=== PATIENT | female | born 1960 | race Caucasian/White ===

== ENCOUNTER 2020-11-15 09:18 | Outpatient (CLI) | payer MEDICARE, SELFPAY ==
[2020-11-15 09:51] LABS: Hematocrit 42.6 % (37.0-47.0); Hemoglobin 14.2 g/dL (12.0-15.0); Mean Corpuscular HGB Conc 33.3 g/dl (32-36); Mean Corpuscular Hemoglobin 28.3 pg (26-34); Platelet Count Result 342 k/mm3 (150-375); Red Blood Count 5.01 M/mm3 (4.2-5.4); Red Cell Distribution Width 13.7 % (11.5-14.5)
== END 2020-11-15 09:19 | disposition home or self-care (01) ==
LOC: ANHSURGERY 09:24
PROVIDERS: PCP Internal Medicine; Visit Provider Student in an Organized Health Care Education/Training Program
DX: N81.6 Rectocele (principal); Z01.818 Encounter for other preprocedural examination
CPT/HCPCS: 36415; 85027; 86850; 86900; 86901

== ENCOUNTER → 2020-11-19 04:18 | Outpatient (CLI) | payer MEDICARE, SELFPAY ==
[2020-11-19 19:57] LABS: SARS-CoV-2 RNA PCR Negative
== END ==
PROVIDERS: PCP Internal Medicine; Visit Provider Student in an Organized Health Care Education/Training Program
DX: Z01.812 Encounter for preprocedural laboratory examination (principal); Z20.822 Contact with and (suspected) exposure to COVID-19
CPT/HCPCS: C9803; U0003; U0005

== ENCOUNTER 2020-11-22 01:17 | Day surgery (SDC) | payer MEDICARE, SELFPAY ==
[2020-11-09 14:32] VITALS: BMI 22.6
--- NOTE | 2020-11-21 11:15 | WPDANESEPPF ---
Anes - Initial Pre Proc Eval Procedure: Operation Date: 11/22/20 14:30 Proposed Procedures p Anterior and Posterior Repair - Adalberto Soliman MD Date/Time: 11/21/20 11:15 Surgeon: Adalberto Soliman MD Pre Op Diagnosis: rectocele and cystocele, pelvic pain Patient Data Age: 60 Gender: F Height: 1.68 m Weight: 63.5 kg Allergies Allergy/AdvReac Type Severity Reaction Status Date / Time Sulfa (Sulfonamide Allergy Severe Rash Verified 11/22/20 12:25 Antibiotics) levofloxacin AdvReac Unknown Other Verified 11/22/20 12:25 Ithxjoy-Geq-Dzm Reductase AdvReac Unknown Other Verified 11/22/20 12:25 Inhibitor Home Medications Medication Instructions Recorded Confirmed Type Women's 50 Plus Multivitamin 1 tablet PO DAILY 11/09/20 11/22/20 History cholecalciferol (vitamin D3) 50 mcg PO DAILY 11/09/20 11/22/20 History [Vitamin D3] clonazepam 0.5 mg PO BID 11/09/20 11/22/20 History clonazepam 2 mg PO HS 11/09/20 11/22/20 History doxepin 10 mg PO HS 11/09/20 11/22/20 History mirtazapine 30 mg PO HS 11/09/20 11/22/20 History sertraline 100 mg PO HS 11/09/20 11/22/20 History suvorexant [Belsomra] 20 mg PO HS 11/09/20 11/22/20 History Patient hx anesthesia problems: none Family hx anesthesia problems: none PMFSH Past Medical History Medical History (Updated 11/22/20 @ 08:43 by Adalberto Soliman MD) Anxiety Depression Hypercholesterolemia PTSD (post-traumatic stress disorder) Family History Family History (Updated 03/23/14 @ 07:13 by DOCTOR UNKNOWN) Mother Family history of pancreatic cancer Father Family history of lung cancer Social History Social History Years smoked: 15 Smoking status: Former smoker Smoking end date: 03/27/20 Alcohol intake: never Substance use: never Substance use type: does not use Living arrangements: with family Spiritual care concerns: No Anes - Eval Final PreProcedure Day of Procedure 11/21/20 11:15 Patient weight: normal Heart: regular rate and rhythm Lungs: clear to auscultation and normal air movement Airway: Mallampati scale class II Neurological: alert and oriented Last oral intake: >/= 8 hours ASA classification: II Emergent: no Anesthetic plan: proceed Anesthesia type and monitoring: general ETT Informed Consent: The patient's anesthetic plan and its attendant risks and benefits were discussed with the patient/family/POA. Questions were solicited and answers provided to the satisfaction of the patient/family/POA.
--- NOTE | ~2020-11-22 | XR_ITS ---
EXAMINATION: XR retrograde pyelo w/stent BI DATE: 11/22/2020 16:11 INDICATION: Bilateral retrograde ureteral stent placement TECHNIQUE: 2 fluoroscopic images of the abdomen were obtained during procedure performed by Dr. Eduard quintanilla. Radiologist was not present for the imaging or procedure. The amount of fluoroscopy time used duri ng this procedure was 1.6 minutes. COMPARISON: None. FINDINGS: Images demonstrate placement of bilateral retrograde ureteral stents with proximal loop formed in the region of the right renal pelvis and likely upper pole calyx of the left kidney. IMPRESSION: 1. Fluoroscopy utilized during bilateral retrograde ureteral stent placement. See procedure note for further detail. Reviewed, dictated and finalized at location A. IMPRESSION: 1. Fluoroscopy utilized during bilateral retrograde ureteral stent placement. S ee procedure note for further detail.
--- NOTE | 2020-11-22 08:39 | PM.IMHP ---
H&P: HPI History of Present Illness Date/Time: 11/22/20 08:39 60 yo who presents for anterior and posterior colporrhaphy for pelvic organ prolapse. Pt initially presented iwht pelvic pain and pressure. Pt also reported rakesh hematuria at the time. Pt's symptoms were unresolved with antibiotics. Pt denies any NICO as she has had a TVT in the past. Chief Complaint: pelvic organ prolapse Review of Systems Cardiovascular: Cardiovascular: Denies chest pain, Denies leg edema, Denies palpitations, Denies dyspnea and Denies dyspnea on exertion Respiratory: Respiratory: Denies cough, Denies dyspnea and Denies dyspnea on exertion Gastrointestinal: Gastrointestinal: Denies abdominal pain, Denies constipation, Denies diarrhea, Denies nausea and Denies vomiting Genitourinary: Genitourinary: Denies hematuria, Denies urinary frequency, Denies dysuria, Denies pelvic pain, Denies urinary incontinence and Denies vaginal discharge Neurologic: Reports system reviewed and no additional complaints, except as documented Psychiatric: Psychiatric: Reports no additional psychiatric complaints Endocrine: Endocrine: Denies palpitations PMFSH Past Medical History Medical History (Updated 11/22/20 @ 08:43 by Adalberto Soliman MD) Anxiety Depression Hypercholesterolemia PTSD (post-traumatic stress disorder) Family History Family History (Updated 03/23/14 @ 07:13 by DOCTOR UNKNOWN) Mother Family history of pancreatic cancer Father Family history of lung cancer Social History Social History Years smoked: 15 Smoking status: Former smoker Smoking end date: 03/27/20 Alcohol intake: never Substance use: never Substance use type: does not use Living arrangements: with family Spiritual care concerns: No Meds Home Medications and Allergies Home Medications Medication Instructions Recorded Confirmed Type Women's 50 Plus Multivitamin 1 tablet PO DAILY 11/09/20 11/09/20 History cholecalciferol (vitamin D3) 50 mcg PO DAILY 11/09/20 11/09/20 History [Vitamin D3] clonazepam 0.5 mg PO BID 11/09/20 11/09/20 History clonazepam 2 mg PO HS 11/09/20 11/09/20 History doxepin 10 mg PO HS 11/09/20 11/09/20 History mirtazapine 30 mg PO HS 11/09/20 11/09/20 History sertraline 100 mg PO HS 11/09/20 11/09/20 History suvorexant [Belsomra] 20 mg PO HS 11/09/20 11/09/20 History Allergies Allergy/AdvReac Type Severity Reaction Status Date / Time Sulfa (Sulfonamide Allergy Severe Rash Verified 11/09/20 14:28 Antibiotics) levofloxacin AdvReac Unknown Other Verified 11/09/20 14:28 Ixrssgm-Qwn-Oer Reductase AdvReac Unknown Other Verified 11/09/20 14:28 Inhibitor Exam Const: General: no acute distress Eyes: EOM: EOMs intact bilaterally Neck: Neck: supple Thyroid: thyroid normal Chest: Breast/axilla inspection: normal inspection of the breasts Breast/axilla palpation: normal palpation of the breasts, normal palpation of the axillae and no axillary lymphadenopathy Resp: Effort & Inspection: normal respiratory effort Auscultation: clear to auscultation bilaterally Cardio: Rate: regular rate Rhythm: regular rhythm GI: Inspection: non-distended GI Palp: Yes Soft to palpation, No Tenderness to palpation present (GI) and No Guarding due to palpation present (GI) Auscultation: normal bowel sounds : General: No bladder normal to palpation External Female Exam: normal external appearance Speculum Exam - Vagina: normal vaginal discharge, vagina atrophic, No vaginal bleeding and other (grade 2 cystocele and rectocele ) Speculum Exam - Cervix: Cervix absent Bimanual exam- vagina & uterus: No bladder normal to palpation and uterus absent Skin: General skin exam: normal color and no rashes or lesions noted Neuro: Cognition (Neuro): normal cognition Speech: normal speech Extrem: General: normal to inspection and no edema Psych: Mental Status: mental status grossly normal Affect: normal affect Assessment
--- NOTE | 2020-11-22 08:44 | WPDHPUPDATE1 ---
History and Physical Update Update Date/Time: 11/22/20 08:44 History and Physical has been reviewed, including an updated exam of the patient. There are NO changes in the patient's condition. Risks, benefits, and alternatives have been discussed and questions answered. Patient agrees to proceed with procedure.
[2020-11-22] MEDS: ACETAMINOPHEN 500 MG TABLET 1000 MG PO (12:53)
[2020-11-22] MEDS: LACTATED RINGERS 1,000 ML 30 ML IV CONT ×2 (12:53→17:08)
[2020-11-22] MEDS: KETOROLAC 15 MG/ML VIAL (*BKC) IV PUSH (12:55)
[2020-11-22 13:11] VITALS: BP 110/75; PULSE 70; RESP 16; TEMP 36.6; O2SAT 97
[2020-11-22] MEDS: ceFAZolin 2 GM/D5W 50 ML 2 GM/50 ML BAG IVPB (13:46)
[2020-11-22] MEDS: LIDO 1%/EPINEPHRINE 1:100,000 50 ML VIAL 30 ML INFILTRATE (14:01)
--- NOTE | 2020-11-22 14:53 | SUR.OPER ---
methylene blue 5cc IV per anesthesia /see anesthesia record
--- NOTE | 2020-11-22 16:07 | P.CONUR_ITS ---
Assessment and Plan Assessment and plan (1) Prolapse of female pelvic organs: Code(s): N81.9 - Female genital prolapse, unspecified Status: Acute Assessment and Plan: * Intraoperative evaluation with cystoscopy that showed patent ureters bilaterally without evidence of ureteral injury Urology Consult Note HPI Date Seen: 11/22/20 Requesting Physician: Adalberto Soliman MD Primary Care Provider: David Florentino, MD Consult Narrative Narrative: Corinna Watson is a 60 year old female who I was asked to see by Dr. Soliman as an intraoperative consultation for possible ureteral obstruction. This is during the course of a anterior and posterior vaginal repair. Patient is not known to have prior significant urological history. For specifics on the operative procedure (which showed no evidence of ureteral obstruction or injury) please see the dictated operative note. Review of Systems Review of Systems: ROS unobtainable: Yes unobtainable due to medical condition PMFSH Past Medical History Medical History (Updated 11/22/20 @ 08:43 by Adalberto Soliman MD) Anxiety Depression Hypercholesterolemia PTSD (post-traumatic stress disorder) Family History Family History (Updated 03/23/14 @ 07:13 by DOCTOR UNKNOWN) Mother Family history of pancreatic cancer Father Family history of lung cancer Social History Social History Years smoked: 15 Smoking status: Former smoker Smoking end date: 03/27/20 Alcohol intake: never Substance use: never Substance use type: does not use Living arrangements: with family Spiritual care concerns: No Meds Home Medications and Allergies Home Medications Medication Instructions Recorded Confirmed Type Women's 50 Plus Multivitamin 1 tablet PO DAILY 11/09/20 11/22/20 History cholecalciferol (vitamin D3) 50 mcg PO DAILY 11/09/20 11/22/20 History [Vitamin D3] clonazepam 0.5 mg PO BID 11/09/20 11/22/20 History clonazepam 2 mg PO HS 11/09/20 11/22/20 History doxepin 10 mg PO HS 11/09/20 11/22/20 History mirtazapine 30 mg PO HS 11/09/20 11/22/20 History sertraline 100 mg PO HS 11/09/20 11/22/20 History suvorexant [Belsomra] 20 mg PO HS 11/09/20 11/22/20 History Allergies Allergy/AdvReac Type Severity Reaction Status Date / Time Sulfa (Sulfonamide Allergy Severe Rash Verified 11/22/20 12:25 Antibiotics) levofloxacin AdvReac Unknown Other Verified 11/22/20 12:25 Awwtcqs-Thj-Oai Reductase AdvReac Unknown Other Verified 11/22/20 12:25 Inhibitor Vital Signs Vital Signs - 24 hr 11/22/20 13:11 Temperature 97.8 F Pulse Rate 70 Respiratory Rate 16 Blood Pressure 110/75 Pulse Oximetry 97
--- NOTE | 2020-11-22 16:11 | P.OP_ITS ---
Procedure Note - Detailed Date of procedure: 11/22/20 Pre-op diagnosis: rectocele and cystocele, pelvic pain Post-op diagnosis: same Procedure performed: 1. Cystoscopy with bilateral retrograde pyelography. 2. Left ureteroscopy. 3. Bilateral ureteral stent placement Description of procedure: Patient is in the operative suite where she has just undergone the anterior portion of an anterior/posterior vaginal repair. Cystoscopic evaluation by Dr. berto chopra failed to show any efflux her ureters, either before or following intravenous dye injection. With my cystoscopy the bladder mucosa appeared normal without hyperemia or areas of apparent injury. There was some slight medial deviation of her ureteral orifices, likely from the anterior vaginal repair that has just been performed. Right retrograde pyelography showed a patent ureter without signs of obstruction. Because of the medial deviation I did opt to place a 4.8 F right variable length ureteral stent to a could accommodate for some possible postoperative ureteral edema that I anticipate may occur. On the left side, had some difficulty getting a guidewire to pass beyond the intramural portion of the ureter. I believe this was related to some J hooking of her distal ureter without true obstruction. With the aid of a semi rigid ureteral scope I was able to identify the ureteral lumen and passed a 0.035 in glidewire. In passing an angiographic catheter for retrog rade pyelography I feel no points of significant, pathological obstruction. Retrograde pyelography shows filling of the renal pelvis. As on the right side, I opted to place a left ureteral stent. The proximal coil reach 4.8 F ureteral stent was in the renal pelvis and distal coils were in the bladder. Anesthesia: GLMA Surgeon: Vishnu Benavides MD Drains: Yes ( Bilateral 4.8 F ureteral stents) Packing: No Pathology: none sent Complications: No immediate complications Condition: stable
--- NOTE | 2020-11-22 16:16 | SUR.OPER ---
Patient repositioned for C Arm/or bed radiographic extension placed on end of bed. Patient repositioned in Lithotomy/bilateral arms and legs remain unchanged in positioning/placed lower on bed. All legs and arms checked post repositioning.
--- NOTE | 2020-11-22 17:08 | PM.PROC ---
Procedure Note - Detailed Date of procedure: 11/22/20 Pre-op diagnosis: rectocele and cystocele, pelvic pain Description of procedure: PREOPERATIVE DIAGNOSIS: Pelvic organ prolapse cystocele rectocele POSTOPERATIVE DIAGNOSIS: Same PROCEDURE: Anterior colporrhaphy posterior colporrhaphy cystoscopy ESTIMATED BLOOD LOSS: milliliter(s) URINE OUTPUT: milliters(s) FINDINGS: Stage prolapse. Normal cystourethroscopy with brisk efflux from the bilateral ureters. No trauma or injury to the bladder. size uterus. Normal appearing tubes and ovaries bilaterally. ANESTHESIA: General endotracheal COMPLICATIONS: None INDICATION FOR PROCEDURE: 60 year old patient who presented with symptomatic pelvic organ prolapse. On exam she had stage 2 prolapse. She desired to proceed with appropriate surgical repairs. She was consented to the risks, including bleeding, risk of blood transfusion, infection, injury to surrounding organs such as bowel, bladder, ureters, urethra, the risk of postoperative voiding dysfunction or defecatory dysfunction, risk of nerve injury or re- exploration, the risk of recurrent prolapse or incontinence. The patient understood all of these risks and desired to proceed. OPERATIVE NOTE: The patient was taken to the operating room and general anesthesia was found to be adequate. She was prepped and draped in the normal sterile fashion and placed in Zenon stirrups. Preoperative antibiotics were administered in the patient holding area. ANTERIOR REPAIR: At this time, the cystocele was grasped using Allis clamps and injected with 1% lidocaine with epinephrine. A midline incision was then made with a scalpel and the bladder dissected free from the vaginal mucosa by means of sharp dissection. This dissection was taken out laterally until the inferior pubic rami. The cystocele was then plicated in two layers using 2-0 Vicryl in an interrupted fashion. Excess vaginal tissue was then excised. The anterior vaginal mucosa was reapproximated with 3-0 vicryl in a running locking fashion. CYSTOURETHROSCOPY: Pt received 1 ampule of methylene blue. Cystourethroscopy was performed to confirm no injury to the bladder or urethra. The bilateral ureters were not noted to efflux after 30 min of waiting. At this time, Urology consult was placed. Retrograde pyelogram was performed. Contrast was passed successfully through bilateral ureters. Ureteral stents were then placed by urology. See Dr. Benavides' note for full dictation. RECTOCELE REPAIR AND PERINEORRHAPHY: At this time, after injection with the lidocaine mixture, a lee-shaped wedge of tissue was taken from the posterior perineum and vagina after two Allis clamps were placed on the posterior forchette in the appropriate position to ensure that the vaginal introitus was the appropriate size. With one finger in the rectum, the rectocele was then dissected free of the vaginal mucosa by means of sharp dissection. The rectocele was then plicated using 2-0 Vicryl suture in an interrupted fashion. The posterior vaginal mucosa was then closed using 3-0 Vicryl in a running locking fashion and the perineum closed in a subcuticular fashion. Iodiform vaginal packing was placed in the vagina and the Mc catheter was left in place. Sponge, lap and needle counts were correct x 2. There were no complications. The patient tolerated the procedure well and was taken to the recovery room in stable condition. Anesthesia: GETA Surgeon: Adalberto Soliman MD Estimated blood loss (mL): 150 Drains: No Packing: Yes Pathology: none sent Complications: Other complications (No ureteral efflux) Condition: stable Disposition: PACU
[2020-11-22 17:15] VITALS: BP 117/76; PULSE 87; RESP 13; TEMP 36.1; O2SAT 98
[2020-11-22 17:15] LABS: Glucose Point of Care 145 (65-105)
--- NOTE | 2020-11-22 17:28 | PM.DS ---
DS: Admitting Diagnosis Admitting Diagnosis Admitting Diagnosis: pelvci organ prolapse DS: Summary Hospital Course Hospital Course: Corinna Watson was admitted for anterior and posterior colporrhaphy and cystoscopy for pelvic organ prolapse. The above procedure was performed with no complications. She is doing well post op. She states her pain is well controlled with PO medications. She reports minimal bleeding. She is ambulating up to the chair. Her agudelo catheter was removed. She is tolerating PO without N/V. She reports passing flatus. Status at Discharge Overall status at discharge: patient is progressing back to baseline Time Spent with Patient Time attestation: Total time spent providing and/or coordinating discharge services: Time spent: Less than 30 minutes Exam Const: General: comfortable and no acute distress Limitations: no limitations Resp: Effort & Inspection: normal respiratory effort Auscultation: clear to auscultation bilaterally Cardio: Rate: regular rate Rhythm: regular rhythm GI: Inspection: non-distended GI Palp: Yes Soft to palpation, Yes Tenderness to palpation present (GI) (milder tenderness to deep palpation) and No Guarding due to palpation present (GI) Auscultation: normal bowel sounds Other: incisions C/D/I covered with dermabond Urinary Catheter: Urinary Catheter: urine clear Skin: General skin exam: normal color Extrem: General: normal to inspection Psych: Mental Status: mental status grossly normal Affect: normal affect DS: Data Data Completed and Pending Labs on day of discharge: Labs from last 24 hours 11/22/20 17:11 POC Capillary Glucose 145 H Discharge Plan Discharge Patient Disposition: Home, Self-Care Patient Instructions: Anterior Vaginal Repair (DC), Posterior Vaginal Repair (DC) Stand Alone Forms: General Discharge Instructions Follow-up/Referrals: Adalberto Soliman MD [Physician] - 2 Weeks Discharge Medications: New oxycodone-acetaminophen [Percocet] 5-325 mg tablet 1 tablet PO Q6H PRN (Reason: pain) Qty: 28 RF: 0 Continued clonazepam 0.5 mg Tablet 0.5 mg PO BID RF: 0 sertraline 100 mg Tablet 100 mg PO HS RF: 0 doxepin 10 mg Capsule 10 mg PO HS RF: 0 mirtazapine 30 mg Tablet 30 mg PO HS RF: 0 clonazepam 2 mg Tablet 2 mg PO HS RF: 0 cholecalciferol (vitamin D3) [Vitamin D3] 25 mcg (1,000 unit) Tablet 50 mcg PO DAILY RF: 0 Belsomra 20 mg Tablet 20 mg PO HS RF: 0 Women's 50 Plus Multivitamin 1 tablet PO DAILY RF: 0
[2020-11-22 17:30] VITALS: BP 120/81; PULSE 80; RESP 16; O2SAT 97
[2020-11-22 17:45] VITALS: BP 128/81; PULSE 80; RESP 18; O2SAT 92
[2020-11-22] MEDS: ONDANSETRON INJ 4 MG/2 ML VIAL IV PUSH (17:58)
[2020-11-22 18:00] VITALS: BP 130/71; PULSE 80; RESP 16; O2SAT 92
--- NOTE | 2020-11-22 18:03 | SUR.PHASEI ---
[id number] sbar faxed floor notified
--- NOTE | 2020-11-22 18:40 | PC.NURSE ---
Patient transferred to room #289 per stretcher.
[2020-11-22] MEDS: DEXTROSE 5%/LACTATED RINGERS 1,000 ML 125 ML IV CONT (18:56)
[2020-11-22 19:00] VITALS: BP 123/79; PULSE 64; RESP 16; TEMP 36.7; O2SAT 96
[2020-11-22] MEDS: KETOROLAC 30 MG/ML VIAL (*BKC) IV PUSH (19:13)
[2020-11-22] MEDS: HYDROcodone/acetaminophen (*CRX) 10-325 MG TABLET 1 TAB PO (20:35)
[2020-11-22] MEDS: MIRTAZAPINE 30 MG TABLET PO (21:24)
[2020-11-22] MEDS: SERTRALINE HCL 50 MG TABLET 100 MG PO (21:24)
[2020-11-22] MEDS: DOXEPIN HCL 10 MG CAPSULE PO (21:25)
[2020-11-23] VITALS: BP 109/76; PULSE 61; RESP 16; TEMP 36.4; O2SAT 95
[2020-11-23] MEDS: HYDROcodone/acetaminophen (*CRX) 10-325 MG TABLET 1 TAB PO ×3 (00:21→09:01)
[2020-11-23 04:00] VITALS: BP 110/67; PULSE 65; RESP 16; TEMP 36.5; O2SAT 95
--- NOTE | 2020-11-23 07:01 | WPDUROPN2 ---
Progress Note: A&P Assessment and Plan (1) Prolapse of female pelvic organs: Code(s): N81.9 - Female genital prolapse, unspecified Status: Acute Assessment and Plan: I explained my role in OR yesterday and placement of bilat. ureteral stents. I emphasized to her the need to remove her stents (in-office) in a few weeks. She should f/u with us in approx. 3-weeks. Subjective Subjective Date/Time Seen: 11/23/20 07:01 Comfortable, tolerating stents without voiding complaints Review of Systems Cardiovascular: Cardiovascular: Denies chest pain, Denies lightheadedness, Denies palpitations and Denies dyspnea Respiratory: Respiratory: Denies dyspnea Gastrointestinal: Gastrointestinal: Denies diarrhea, Denies nausea and Denies vomiting Genitourinary: Genitourinary: Denies hematuria and Denies dysuria Endocrine: Endocrine: Denies palpitations Exam Const: General: no acute distress Resp: Effort & Inspection: normal respiratory effort GI: Inspection: non-distended GI Palp: No abdominal tenderness and No Guarding due to palpation present (GI) Auscultation: normal bowel sounds Objective Data Vital Signs Vital Signs: Vital Signs - 24 hr 11/22/20 13:11 11/22/20 17:15 11/22/20 17:30 Temperature 97.8 F 97 F L Pulse Rate 70 87 80 Respiratory Rate 16 13 16 Blood Pressure 110/75 117/76 120/81 Pulse Oximetry 97 98 97 11/22/20 17:45 11/22/20 18:00 11/22/20 19:00 Temperature 98.1 F Pulse Rate 80 80 64 Respiratory Rate 18 16 16 Blood Pressure 128/81 130/71 123/79 Pulse Oximetry 92 92 96 11/23/20 00:00 11/23/20 04:00 Temperature 97.6 F 97.7 F Pulse Rate 61 65 Respiratory Rate 16 16 Blood Pressure 109/76 110/67 Pulse Oximetry 95 95 Intake/Output Intake/Output: Intake & Output 11/20/20 11/21/20 11/22/20 11/23/20 23:59 23:59 23:59 23:59 Intake Total 850 1200 Output Total 610 875 Balance 240 325 Meds/Results Medications: Active Medications Generic Name Dose Route Start Last Admin Trade Name Freq PRN Reason Stop Dose Admin Hydrocodone Bitart/Acetaminophen 1 tab 11/22/20 18:34 Hydrocodone/Acetaminophen (*Crx) 5-325 Mg Tablet PO Q3H PRN Pain Rated 5 or Less Hydrocodone Bitart/Acetaminophen 1 tab 11/22/20 18:34 11/23/20 03:42 Hydrocodone/Acetaminophen (*Crx) 10-325 Mg Tablet PO 1 tab Q3H PRN Administration Pain Rated 6 or Greater Clonazepam 0.5 mg 11/23/20 09:00 Clonazepam (*Crx) 0.5 Mg Tablet PO BID KEELEY Doxepin HCl 10 mg 11/22/20 21:00 11/22/20 21:25 Doxepin Hcl 10 Mg Capsule PO 10 mg HS KEELEY Administration Dextrose/Lactated Ringer's 1,000 mls @ 125 mls/hr 11/22/20 18:34 11/23/20 03:44 Dextrose 5%/Lactated Ringers IV CONT Infused .Q8H KEELEY Infusion Ibuprofen 600 mg 11/22/20 18:34 Ibuprofen 600 Mg Tablet PO Q6H PRN Cramping Ketorolac Tromethamine 30 mg 11/22/20 18:34 11/22/20 19:13 Ketorolac 30 Mg/Ml Vial (*Bkc) IV PUSH 11/27/20 18:35 30 mg Q6H PRN Administration Pain Rated 4-6 Mirtazapine 30 mg 11/22/20 21:00 11/22/20 21:24 Mirtazapine 30 Mg Tablet PO 30 mg HS KEELEY Administration Naloxone HCl 0.1 mg 11/22/20 18:34 Naloxone Hcl 0.4 Mg/Ml Vial IV PUSH Q2M PRN Respiratory rate less than 10 Ondansetron HCl 4 mg 11/22/20 18:34 Ondansetron Inj 4 Mg/2 Ml Vial IV PUSH Q6H PRN Nausea And Vomiting Sertraline HCl 100 mg 11/22/20 21:00 11/22/20 21:24 Sertraline Hcl 50 Mg Tablet PO 100 mg HS KEELEY Administration Radiology Results: ITS Impressions Retrograde Pyelogram 11/22/20 16:24 IMPRESSION: 1. Fluoroscopy utilized during bilateral retrograde ureteral stent placement. See procedure note for further detail. Labs Labs: Laboratory Results - last 24 hr 11/22/20 17:11 POC Capillary Glucose 145 H
--- NOTE | 2020-11-23 08:48 | WPDANESPN ---
Anes - Prog Note Post-Op Date/Time: 11/23/20 08:48 Cardiovascular status: normal Respiratory status: normal Airway patency: baseline Mental status: baseline Post-Op hydration status: normal Vital Signs: Last Vital Signs Temp 36.5 C 11/23/20 04:00 Pulse 65 11/23/20 04:00 Resp 16 11/23/20 04:00 BP 110/67 11/23/20 04:00 Pulse Ox 95 11/23/20 04:00 Pain Score (VAS): 0 I/O: Intake & Output 11/22/20 11/23/20 11/23/20 23:59 07:59 15:59 Intake Total 800 1200 Output Total 610 875 Balance 190 325 11/22/20 17:11 POC Capillary Glucose 145 H Post-procedural complaints: none Patient Feedback: Patient satisfied with anesthetic care.
[2020-11-23] MEDS: IBUPROFEN 600 MG TABLET PO (09:00)
[2020-11-23] MEDS: clonazePAM (*CRX) 0.5 MG TABLET PO (09:00)
[2020-11-23 09:05] VITALS: BP 137/79; PULSE 61; RESP 16; TEMP 37.2; O2SAT 97
--- NOTE | 2020-11-23 09:08 | PM.GYNPNOP ---
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 P: Home to f/u office 2 weeks. Time Spent With Patient Time with patient: less than 15 minutes BALL WARPER TENDER- PN:Subj Post-Op Subjective Date/time seen: 11/23/20 09:08 Interval history: Pain OK. Tolerating diet. Voiding. Would like to go home. Exam Narrative: Exam Narrative: AVSS I/O OK ABD soft, nontender. Incisions c/d/i. EXT nontender BALL WARPER TENDER - PN: Obj Data Vital Signs Vital Signs: Vital Signs - 24 hr 11/22/20 13:11 11/22/20 17:15 11/22/20 17:30 Temperature 36.6 C 36.1 C L Pulse Rate 70 87 80 Respiratory Rate 16 13 16 Blood Pressure 110/75 117/76 120/81 Pulse Oximetry 97 98 97 11/22/20 17:45 11/22/20 18:00 11/22/20 19:00 Temperature 36.7 C Pulse Rate 80 80 64 Respiratory Rate 18 16 16 Blood Pressure 128/81 130/71 123/79 Pulse Oximetry 92 92 96 11/23/20 00:00 11/23/20 04:00 Temperature 36.4 C 36.5 C Pulse Rate 61 65 Respiratory Rate 16 16 Blood Pressure 109/76 110/67 Pulse Oximetry 95 95 Intake/Output Intake/Output: Intake & Output 11/20/20 11/21/20 11/22/20 11/23/20 23:59 23:59 23:59 23:59 Intake Total 850 1200 Output Total 610 875 Balance 240 325 Meds/Results Medications: Active Medications Generic Name Dose Route Start Last Admin Trade Name Freq PRN Reason Stop Dose Admin Hydrocodone Bitart/Acetaminophen 1 tab 11/22/20 18:34 Hydrocodone/Acetaminophen (*Crx) 5-325 Mg Tablet PO Q3H PRN Pain Rated 5 or Less Hydrocodone Bitart/Acetaminophen 1 tab 11/22/20 18:34 11/23/20 09:01 Hydrocodone/Acetaminophen (*Crx) 10-325 Mg Tablet PO 1 tab Q3H PRN Administration Pain Rated 6 or Greater Clonazepam 0.5 mg 11/23/20 09:00 11/23/20 09:00 Clonazepam (*Crx) 0.5 Mg Tablet PO 0.5 mg BID KEELEY Administration Doxepin HCl 10 mg 11/22/20 21:00 11/22/20 21:25 Doxepin Hcl 10 Mg Capsule PO 10 mg HS KEELEY Administration Dextrose/Lactated Ringer's 1,000 mls @ 125 mls/hr 11/22/20 18:34 11/23/20 03:44 Dextrose 5%/Lactated Ringers IV CONT Infused .Q8H KEELEY Infusion Ibuprofen 600 mg 11/22/20 18:34 11/23/20 09:00 Ibuprofen 600 Mg Tablet PO 600 mg Q6H PRN Administration Cramping Ketorolac Tromethamine 30 mg 11/22/20 18:34 11/22/20 19:13 Ketorolac 30 Mg/Ml Vial (*Bkc) IV PUSH 11/27/20 18:35 30 mg Q6H PRN Administration Pain Rated 4-6 Mirtazapine 30 mg 11/22/20 21:00 11/22/20 21:24 Mirtazapine 30 Mg Tablet PO 30 mg HS KEELEY Administration Naloxone HCl 0.1 mg 11/22/20 18:34 Naloxone Hcl 0.4 Mg/Ml Vial IV PUSH Q2M PRN Respiratory rate less than 10 Ondansetron HCl 4 mg 11/22/20 18:34 Ondansetron Inj 4 Mg/2 Ml Vial IV PUSH Q6H PRN Nausea And Vomiting Sertraline HCl 100 mg 11/22/20 21:00 11/22/20 21:24 Sertraline Hcl 50 Mg Tablet PO 100 mg HS KEELEY Administration Radiology Results: ITS Impressions Retrograde Pyelogram 11/22/20 16:24 IMPRESSION: 1. Fluoroscopy utilized during bilateral retrograde ureteral stent placement. See procedure note for further detail. Labs Labs: Laboratory Results - last 24 hr 11/22/20 17:11 POC Capillary Glucose 145 H
== END 2020-11-23 12:04 | disposition home or self-care (01) ==
LOC: ANHSURGERY 17:29 → ANHOB2 18:38
PROVIDERS: Urology; PCP Internal Medicine; Visit Provider Student in an Organized Health Care Education/Training Program
PROC: (CPT 57260; principal; 2020-11-22 14:30)
PROC: 0TBB8ZX Excision of Bladder, Via Natural or Artificial Opening Endoscopic, Diagnostic (ICD-10-PCS; CPT 52204; 2020-11-22 14:30)
DX: N81.6 Rectocele (principal); N81.10 Cystocele, unspecified; N81.9 Female genital prolapse, unspecified; N28.89 Other specified disorders of kidney and ureter; E78.00 Pure hypercholesterolemia, unspecified; F32.9 Major depressive disorder, single episode, unspecified; F41.9 Anxiety disorder, unspecified; Z87.891 Personal history of nicotine dependence
CPT/HCPCS: 57260; 52332; 36415; 74420; 82948; 85027; 86850; 86900; 86901; 99199; A9270; C1769; C1887; C2617; C9803; J0690; J1100; J1885; J1940; J2405; J2704; J3010; J7030; J7120; J7121; Q9968; U0003; U0005

== ENCOUNTER 2020-11-30 15:38 | Observation (INO) | payer MEDICARE, SELFPAY ==
--- NOTE | ~2020-11-30 | XR_ITS ---
EXAMINATION: XR abdomen/kub 1V DATE: 11/30/2020 17:33 INDICATION: Constipation. TECHNIQUE: A supine view of the abdomen on 2 radiographs was obtained. COMPARISON: None. FINDINGS: There is dilated small bowel in left upper quadrant. There is a large volume of stool in th e colon. There are bilateral internal ureteral stents in expected position. IMPRESSION: 1. Large volume of stool in colon. 2. Dilated small bowel in left upper quadrant, consistent with adynamic ileus versus bowel obstructio n. Reviewed, dictated and finalized at location A. IMPRESSION: 1. Large volume of stool in colon. 2. Dilated small bowel in left upper quadrant, consistent with adynamic ileus v ersus bowel obstruction.
--- NOTE | ~2020-11-30 | CT_ITS ---
EXAMINATION: CT abdomen pelvis w con DATE: 11/30/2020 21:11 INDICATION: Constipation. Nausea. TECHNIQUE: Computed tomography (CT) of the abdomen and pelvis was performed with 100 mL Omnipaque 350 intravenous contrast. Automated exposure control and iterative reconstruction technique were employe d. The dose-length product was 486.48 mGy-cm. COMPARISON: None. FINDINGS: The visualized portions of the lung bases demonstrate emphysema and mild atelectasis. No pl eural effusion. The heart size is normal. There are coronary artery calcifications. No pericardial ef fusion. The liver, gallbladder, and pancreas are normal. Calcifications in the spleen are consistent with old granulomatous disease. Right adrenal gland is normal. There is a 12 mm mass in left adrenal gland measuring soft tissue attenuation. There are bilateral internal ureteral stents in expected pos itions. There is a large volume of stool in colon. The appendix is normal. There are no dilated loops of bowel. There are no pathologically enlarged lymph nodes. There is no free intraperitoneal fluid. Pelvic floor relaxation is noted. There is lumbar dextroscoliosis and mild spondylosis. IMPRESSION: 1. Large volume of stool in the colon. 2. Pelvic floor relaxation. 3. 12 mm mass in left adrenal gland. In the absence of known malignancy, this finding is likely an ad enoma. Reviewed, dictated and finalized at location A. IMPRESSION: 1. Large volume of stool in the colon. 2. Pelvic floor relaxation. 3. 12 mm mass in left adrenal gland. In the absence of known malignancy, this f inding is likely an adenoma.
[2020-11-30 16:16] VITALS: BP 118/79; PULSE 84; RESP 16; TEMP 37.1; O2SAT 97
[2020-11-30 16:43] LABS: Basophils Absolute Auto 0.1 K/mm3 (0.0-0.1); Basophils Percent Auto 0.6 % (0.2-1.2); Eosinophils Absolute Auto 0.2 K/mm3 (0-0.3); Eosinophils Percent Auto 1.8 % (0-4.4); Hematocrit 40.1 % (37.0-47.0); Hemoglobin 13.2 g/dL (12.0-15.0); Immature Granulocyte Absolute 0.06 K/mm3 (0.00-0.031); Immature Granulocyte Percent A 0.5 % (0-0.5); Lymphocytes Absolute Auto 3.28 K/mm3 (0.9-3.2); Lymphocytes Percent Auto 24.6 % (18.3-44.2); Mean Corpuscular HGB Conc 32.9 g/dl (32-36); Mean Corpuscular Hemoglobin 28.8 pg (26-34); Mean Corpuscular Volume 87.4 fl (80-100); Mean Platelet Volume 8.9 fl (7.4-10.4); Monocytes Absolute Auto 0.8 K/mm3 (0.1-0.6); Monocytes Percent Auto 5.9 % (2.6-8.5); Neutrophils Absolute Auto 8.9 K/mm3 (1.3-6.7); Neutrophils Percent Auto 66.6 % (45.5-73.1); Platelet Count Result 395 k/mm3 (150-375); Red Blood Count 4.59 M/mm3 (4.2-5.4); Red Cell Distribution Width 14.1 % (11.5-14.5); White Blood Count 13.3 K/mm3 (4.5-10.0)
[2020-11-30 16:46] LABS: Alanine Aminotransferase 33 U/L (4-35); Albumin Level 4.4 g/dL (3.5-5.1); Alkaline Phosphatase 129 U/L (38-126); Anion Gap 10 mmol/L (8-16); Aspartate Amino Transferase 39 U/L (14-36); Bilirubin,Total 0.3 mg/dL (0.2-1.3); Blood Urea Nitrogen 11 mg/dL (7-17); Calcium 9.3 mg/dL (8.4-10.2); Carbon Dioxide 26 mmol/L (22-30); Chloride 104 mmol/L (98-107); Estimated CRCL calculation 79 ml/min; Estimated Glomerular Filt Rate > 60; Glucose 108 mg/dL (65-105); Lipase 29 U/L (23-300); Potassium 4.1 mmol/L (3.4-5.0); Sodium 140 mmol/L (137-145)
[2020-11-30 19:41] VITALS: BP 122/79; PULSE 84; RESP 15
--- NOTE | 2020-11-30 20:01 | ED.GENADULT ---
HPI - General Adult General Chief complaint: Abdominal Pain <Sarbjit Baker PA-C - Last Filed: 11/30/20 21:42> Stated complaint: No BM X 9 Days <Sarbjit Baker PA-C - Last Filed: 11/30/20 21:42> Time Seen by Provider: 11/30/20 19:35 <CHRISTIAN Dyer Last Filed: 11/30/20 21:42> Source: patient, RN notes reviewed and old records reviewed <CHRISTIAN Dyer Last Filed: 11/30/20 21:42> Mode of arrival: ambulatory <CHRISTIAN Dyer Last Filed: 11/30/20 21:42> Limitations: no limitations <CHRISTIAN Dyer Last Filed: 11/30/20 21:42> History of Present Illness HPI narrative: Patient is a 60-year-old female who presents to emergency department noting abdominal discomfort and distention patient had anterior posterior colporrhaphy raphe and cystoscopic for pelvic organ prolapse by Dr. Soliman November 22 which was performed without complications she was discharged home. Patient notes that she has not had a bowel movement since has been using stool softeners with no improvement. Patient notes that during this. She has now had decreased appetite with slight nausea and notes slight discomfort in the left lower abdomen. Patient denies any vaginal bleeding or discharge or hematuria she notes that she is able to urinate without difficulty. Patient states she is passing flatus. <Sarbjit Baker PA-C - Last Filed: 11/30/20 21:42> Related Data Home medications: Home Medications Medication Instructions Recorded Confirmed Belsomra 20 mg PO HS 11/09/20 11/30/20 Women's 50 Plus Multivitamin 1 tablet PO DAILY 11/09/20 11/30/20 cholecalciferol (vitamin D3) 50 mcg PO DAILY 11/09/20 11/30/20 [Vitamin D3] clonazepam 0.5 mg PO BID 11/09/20 11/30/20 clonazepam 2 mg PO HS 11/09/20 11/30/20 doxepin 10 mg PO HS 11/09/20 11/30/20 mirtazapine 30 mg PO HS 11/09/20 11/30/20 sertraline 100 mg PO HS 11/09/20 11/30/20 <Sarbjit Baker PA-C - Last Filed: 11/30/20 21:42> Allergies/adverse reactions: Allergies Allergy/AdvReac Type Severity Reaction Status Date / Time Sulfa (Sulfonamide Allergy Severe Rash Verified 11/30/20 19:50 Antibiotics) levofloxacin AdvReac Unknown Other Verified 11/30/20 23:28 Tuqenea-Lqi-Cve Reductase AdvReac Unknown Other Verified 11/30/20 23:28 Inhibitor <Sarbjit Baker PA-C - Last Filed: 11/30/20 21:42> Review of Systems Review of Systems: All systems reviewed & are unremarkable except as noted in HPI and below <Sarbjit Baker PA-C - Last Filed: 11/30/20 21:42> PMFSH Past Medical History Medical History: Medical History (Updated 11/30/20 @ 21:42 by Sarbjit Bakre PA-C) Anxiety Depression Hypercholesterolemia PTSD (post-traumatic stress disorder) <Sarbjit Baker PA-C - Last Filed: 11/30/20 21:42> Surgical History Surgical History: Surgical History (Updated 11/30/20 @ 20:04 by Sarbjit Baker PA-C) History of anterior colporrhaphy <Sarbjit Baker PA-C - Last Filed: 11/30/20 21:42> Family History Family History: Family History Mother Family history of pancreatic cancer Father Family history of lung cancer <Sarbjit Baker PA-C - Last Filed: 11/30/20 21:42> Social History Social History: Social History Years smoked: 15 Smoking status: Former smoker Tobacco type: cigarettes Alcohol intake: never Substance use: never Substance use type: does not use Gender identity (if verbalized by the patient): Female Spiritual care concerns: No <Sarbjit Baker PA-C - Last Filed: 11/30/20 21:42> Exam Narrative: Exam Narrative: GENERAL: Well-appearing, well-nourished, and in no acute distress. HEAD: Normocephalic, atraumatic. EYES: PERRLA and EOMI. ENT: Nares clear, no rhinorrhea or epistaxis. Mucous membranes moist. CHEST: Clear to auscultati
[2020-11-30] MEDS: SODIUM CHLORIDE 0.9% IV 1,000 ML 999 ML IV CONT (20:31)
[2020-11-30 20:33] LABS: Add Urine Microscopic? YES; Appearance Urine Cloudy (Clear); Bacteria Urine Trace /hpf; Bilirubin Urine Negative (Negative); Blood Urine 3+ (Negative); Color Urine Yellow (Yellow); Glucose Urine UA Negative (Negative); Ketones Urine Negative (Negative); Leukocyte Esterase Ur 3+ LEU/UL (Negative); Mucus Urine Heavy /lpf; Nitrate Urine Negative (Negative); Protein Urine 2+ mg/dL (Negative); RBC Urine >75 /hpf (0-2); Specific Grav Ur 1.015 (1.001-1.035); Squamous Epithelial Cell Urine Rare /hpf (Few); Transitional Epi Cells Urine Rare /hpf (None Seen); Urobilinogen Urine Negative mg/dL (<2.0); WBC Urine >75 /hpf
--- NOTE | 2020-11-30 20:55 | PC.NURSE ---
Pt to CT at this time.
[2020-11-30 21:09] LABS: Lactic Acid Reflex 0.7 mmol/L (0.7-2.1)
[2020-11-30] MEDS: LORazepam INJ (*CRX) 2 MG/ML VIAL 1 MG IV PUSH (22:08)
[2020-11-30 22:15] VITALS: BP 122/63; PULSE 75; RESP 18; O2SAT 96
[2020-11-30] MEDS: ONDANSETRON INJ 4 MG/2 ML VIAL IV PUSH (22:51)
[2020-11-30] MEDS: FAMOTIDINE 20 MG/2 ML VIAL IV PUSH (22:51)
--- NOTE | 2020-11-30 22:56 | PC.NURSE ---
Pt not drinking Miralax due to N/V, pt given Miralax bottle to go upstairs.
--- NOTE | 2020-11-30 23:11 | ADMGEN ---
This patient, Corinna Watsno, was admitted to Medical Room 247-. Patient/family oriented to hospital policies and general routines including ID bracelet, bed and alarms, visiting hours, pain management, procedures, bathroom and other care routines, personal items, smoking policy, room service/diet, and visiting hours. Information on how to activate the Rapid Response Team has been discussed. Patient/Family are encouraged to report perceived risks to care and to ask questions if they do not understand what they are told or what they should do.
[2020-11-30] MEDS: polyethylene glycoL 3350 238 GM BOTTLE PO (23:31)
[2020-11-30] MEDS: LACTATED RINGERS 1,000 ML 80 ML IV CONT (23:31)
[2020-12-01] VITALS: BP 117/51; PULSE 75; RESP 16; TEMP 36.7; O2SAT 98; BMI 26.4
[2020-12-01] MEDS: MIRTAZAPINE 30 MG TABLET PO (01:14)
[2020-12-01] MEDS: clonazePAM (*CRX) 0.5 MG TABLET 2 MG PO (01:14)
[2020-12-01] MEDS: SERTRALINE HCL 50 MG TABLET 100 MG PO (01:15)
[2020-12-01] MEDS: DOXEPIN HCL 10 MG CAPSULE PO (01:15)
[2020-12-01 05:41] VITALS: BP 107/63; PULSE 76; RESP 16; TEMP 36.1; O2SAT 91
[2020-12-01 05:45] LABS: Anion Gap 4 mmol/L (8-16); Blood Urea Nitrogen 8 mg/dL (7-17); Calcium 8.6 mg/dL (8.4-10.2); Carbon Dioxide 27 mmol/L (22-30); Chloride 109 mmol/L (98-107); Estimated CRCL calculation 79 ml/min; Estimated Glomerular Filt Rate > 60; Glucose 104 mg/dL (65-105); Potassium 3.8 mmol/L (3.4-5.0); Sodium 140 mmol/L (137-145)
[2020-12-01 05:54] LABS: Basophils Absolute Auto 0.1 K/mm3 (0.0-0.1); Basophils Percent Auto 0.7 % (0.2-1.2); Eosinophils Absolute Auto 0.2 K/mm3 (0-0.3); Eosinophils Percent Auto 1.5 % (0-4.4); Hematocrit 36.6 % (37.0-47.0); Immature Granulocyte Absolute 0.04 K/mm3 (0.00-0.031); Immature Granulocyte Percent A 0.3 % (0-0.5); Lymphocytes Absolute Auto 2.36 K/mm3 (0.9-3.2); Lymphocytes Percent Auto 19.9 % (18.3-44.2); Mean Corpuscular HGB Conc 32.8 g/dl (32-36); Mean Corpuscular Volume 88.4 fl (80-100); Mean Platelet Volume 8.9 fl (7.4-10.4); Monocytes Absolute Auto 0.9 K/mm3 (0.1-0.6); Monocytes Percent Auto 7.4 % (2.6-8.5); Neutrophils Absolute Auto 8.3 K/mm3 (1.3-6.7); Neutrophils Percent Auto 70.2 % (45.5-73.1); Platelet Count Result 358 k/mm3 (150-375); Red Blood Count 4.14 M/mm3 (4.2-5.4); Red Cell Distribution Width 14.2 % (11.5-14.5); White Blood Count 11.9 K/mm3 (4.5-10.0)
--- NOTE | 2020-12-01 07:56 | PM.IMHP ---
H&P: HPI History of Present Illness Date/Time: 12/01/20 07:56 Patient was admitted through the ER 9 days from an A&P repair. She underwent x-rays and CT which showed constipation consistent with her 9 days of lack of bowel movement. She was admitted for pain management treatment for chronic constipation. Chief Complaint: Abdominal pain and constipation Review of Systems Review of Systems: All systems reviewed & are unremarkable except as noted in HPI and below PMFSH Past Medical History Medical History Anxiety Depression Hypercholesterolemia PTSD (post-traumatic stress disorder) Surgical History Surgical History History of anterior colporrhaphy Family History Family History Mother Family history of pancreatic cancer Father Family history of lung cancer Social History Social History Years smoked: 15 Smoking status: Former smoker Tobacco type: cigarettes Alcohol intake: never Substance use: never Substance use type: does not use Gender identity (if verbalized by the patient): Female Spiritual care concerns: No Meds Home Medications and Allergies Home Medications Medication Instructions Recorded Confirmed Type Belsomra 20 mg PO HS 11/09/20 11/30/20 History Women's 50 Plus Multivitamin 1 tablet PO DAILY 11/09/20 11/30/20 History cholecalciferol (vitamin D3) 50 mcg PO DAILY 11/09/20 11/30/20 History [Vitamin D3] clonazepam 0.5 mg PO BID 11/09/20 11/30/20 History clonazepam 2 mg PO HS 11/09/20 11/30/20 History doxepin 10 mg PO HS 11/09/20 11/30/20 History mirtazapine 30 mg PO HS 11/09/20 11/30/20 History sertraline 100 mg PO HS 11/09/20 11/30/20 History Allergies Allergy/AdvReac Type Severity Reaction Status Date / Time Sulfa (Sulfonamide Allergy Severe Rash Verified 11/30/20 19:50 Antibiotics) levofloxacin AdvReac Unknown Other Verified 11/30/20 23:28 Rrcwxms-Xna-Snu Reductase AdvReac Unknown Other Verified 11/30/20 23:28 Inhibitor Vital Signs Vital Signs - 24 hr 11/30/20 16:16 11/30/20 19:41 11/30/20 22:15 Temperature 98.8 F Pulse Rate 84 84 75 Respiratory Rate 16 15 18 Blood Pressure 118/79 122/79 122/63 Pulse Oximetry 97 96 12/01/20 00:00 12/01/20 05:41 Temperature 98.1 F 97.0 F L Pulse Rate 75 76 Respiratory Rate 16 16 Blood Pressure 117/51 L 107/63 Pulse Oximetry 98 91 Exam Const: General: no acute distress Eyes: General: appearance normal, both eyes and all related structures Neck: Neck: supple and no JVD Thyroid: thyroid normal Resp: Effort & Inspection: normal respiratory effort Auscultation: clear to auscultation bilaterally Cardio: Rate: regular rate Rhythm: regular rhythm GI: Inspection: non-distended GI Palp: Yes Soft to palpation, No Tenderness to palpation present (GI) and No Guarding due to palpation present (GI) Auscultation: normal bowel sounds : General: Yes bladder normal to palpation External Female Exam: normal external appearance Speculum Exam - Vagina: normal vaginal discharge and No vaginal bleeding Speculum Exam - Cervix: nontender Bimanual exam- vagina & uterus: bladder normal to palpation and No Cervical tenderness present OB/external & speculum: No vaginal bleeding Skin: General skin exam: no rashes or lesions noted Extrem: General: normal to inspection and no edema Psych: Mental Status: mental status grossly normal Affect: normal affect H&P: Results Labs Labs: Short CBC 11/30/20 12/01/20 Range/Units 16:26 05:09 WBC 13.3 H 11.9 H (4.5-10.0) K/mm3 Hgb 13.2 12.0 (12.0-15.0) g/dL Hct 40.1 36.6 L (37.0-47.0) % Plt Count 395 H 358 (150-375) k/mm3 BMP 11/30/20 12/01/20 16:26 05:09 Sodium 140 140 Potassium 4.1 3.8 Chloride 104 109 H
--- NOTE | 2020-12-01 07:58 | PM.DS ---
DS: Admitting Diagnosis Admitting Diagnosis Admitting Diagnosis: Abdominal pain/ constipation DS: Summary Hospital Course Hospital Course: The patient was admitted through the ER complaining of abdominal pain and lack of bowel movement for 9 days. She had undergone anterior posterior repair [address] scan showed constipation. There are also placement of stents during the procedure which were noted to be in the correct place. As there was some hematuria and possible kidney infection she was given a dose of Rocephin. Her hospital course was unremarkable. She received a soapsuds enema and treatment for constipation and eventually had to moderate-sized bowel movements and was feeling better. She was up, ambulating, eating, and generally feeling much better. Time Spent with Patient Time attestation: Total time spent providing and/or coordinating discharge services: Exam Const: General: no acute distress Eyes: General: appearance normal, both eyes and all related structures Neck: Neck: supple and no JVD Thyroid: thyroid normal Resp: Effort & Inspection: normal respiratory effort Auscultation: clear to auscultation bilaterally Cardio: Rate: regular rate Rhythm: regular rhythm GI: Inspection: non-distended GI Palp: Yes Soft to palpation, No Tenderness to palpation present (GI) and No Guarding due to palpation present (GI) Auscultation: normal bowel sounds : General: Yes bladder normal to palpation External Female Exam: normal external appearance Speculum Exam - Vagina: normal vaginal discharge and No vaginal bleeding Speculum Exam - Cervix: nontender Bimanual exam- vagina & uterus: bladder normal to palpation and No Cervical tenderness present OB/external & speculum: No vaginal bleeding Skin: General skin exam: no rashes or lesions noted Extrem: General: normal to inspection and no edema Psych: Mental Status: mental status grossly normal Affect: normal affect DS: Data Data Completed and Pending Labs on day of discharge: Labs from last 24 hours 12/01/20 12/01/20 11/30/20 05:09 05:09 20:47 WBC 11.9 H RBC 4.14 L Hgb 12.0 Hct 36.6 L MCV 88.4 MCH 29.0 MCHC 32.8 RDW 14.2 Plt Count 358 MPV 8.9 Immature Gran % (Auto) 0.3 Neut % (Auto) 70.2 Lymph % (Auto) 19.9 [place] % (Auto) 7.4 Eos % (Auto) 1.5 Baso % (Auto) 0.7 Lymph # (Auto) 2.36 [place] # (Auto) 0.9 H Eos # (Auto) 0.2 Baso # (Auto) 0.1 Abs Immat Gran (auto) 0.04 H Absolute Neuts (auto) 8.3 H Absolute Nucleated RBC 0.0 Nucleated RBC % 0.0 Sodium 140 Potassium 3.8 Chloride 109 H Carbon Dioxide 27 Anion Gap 4 L BUN 8 Creatinine 0.60 L Estim Creat Clear Calc 79 Estimated GFR > 60 Glucose 104 Lactic Acid 0.7 Calcium 8.6 Total Bilirubin AST ALT Alkaline Phosphatase Total Protein Albumin Lipase Urine Color Urine Appearance Urine pH Ur Specific [place] Urine Protein Urine Glucose (UA) Urine Ketones Ur Blood (Man) Urine Nitrate Urine Bilirubin Urine Urobilinogen Leukocyte Esterase Rfl Urine RBC Urine WBC Ur Squamous Epith Cells Ur Transition Epith Cell Urine Bacteria Urine Mucus 11/30/20 11/30/20 11/30/20 20:18 16:26 16:26 WBC 13.3 H RBC 4.59 Hgb 13.2 Hct 40.1 MCV 87.4 MCH 28.8 MCHC 32.9 RDW 14.1 Plt Count 395 H MPV 8.9 Immature Gran % (Auto) 0.5 Neut % (Auto) 66.6 Lymph % (Auto) 24.6 [place] % (Auto) 5.9 Eos % (Auto) 1.8 Baso % (Auto) 0.6 Lymph # (Auto) 3.28 H [place] # (Auto) 0.8 H Eos # (Auto) 0.2 Baso # (Auto) 0.1 Abs Immat Gran (auto) 0.06 H Absolute Neuts (auto) 8.9 H Absolute Nucleated RBC 0.0 Nucleated RBC % 0.0 Sodium 140 Potassium 4.1 Chloride 104 Carbon Dioxide 26 Anion Gap 10 BUN 11 Creatinine 0.60 L Estim Creat Clear Calc 79 Estim
--- NOTE | 2020-12-01 08:01 | PM.OBPNVD ---
OB - PN: Subj Subjective Date/time seen: 12/01/20 08:01 Feeling much better. Had 2 successful bowel movements. OB - PN: Obj Data Labs CBC & Chem 7: 12/01/20 05:09 12/01/20 05:09 Labs: Laboratory Results - last 24 hr 11/30/20 11/30/20 11/30/20 16:26 16:26 20:18 WBC 13.3 H RBC 4.59 Hgb 13.2 Hct 40.1 MCV 87.4 MCH 28.8 MCHC 32.9 RDW 14.1 Plt Count 395 H MPV 8.9 Immature Gran % (Auto) 0.5 Neut % (Auto) 66.6 Lymph % (Auto) 24.6 [place] % (Auto) 5.9 Eos % (Auto) 1.8 Baso % (Auto) 0.6 Lymph # (Auto) 3.28 H [place] # (Auto) 0.8 H Eos # (Auto) 0.2 Baso # (Auto) 0.1 Abs Immat Gran (auto) 0.06 H Absolute Neuts (auto) 8.9 H Absolute Nucleated RBC 0.0 Nucleated RBC % 0.0 Sodium 140 Potassium 4.1 Chloride 104 Carbon Dioxide 26 Anion Gap 10 BUN 11 Creatinine 0.60 L Estim Creat Clear Calc 79 Estimated GFR > 60 Glucose 108 H Lactic Acid Calcium 9.3 Total Bilirubin 0.3 AST 39 H ALT 33 Alkaline Phosphatase 129 H Total Protein 8.0 Albumin 4.4 Lipase 29 Urine Color Yellow Urine Appearance Cloudy H Urine pH 6.0 Ur Specific [place] 1.015 Urine Protein 2+ H Urine Glucose (UA) Negative Urine Ketones Negative Ur Blood (Man) 3+ H Urine Nitrate Negative Urine Bilirubin Negative Urine Urobilinogen Negative Leukocyte Esterase Rfl 3+ H Urine RBC >75 H Urine WBC >75 H Ur Squamous Epith Cells Rare Ur Transition Epith Cell Rare Urine Bacteria Trace Urine Mucus Heavy H 11/30/20 12/01/20 12/01/20 20:47 05:09 05:09 WBC 11.9 H RBC 4.14 L Hgb 12.0 Hct 36.6 L MCV 88.4 MCH 29.0 MCHC 32.8 RDW 14.2 Plt Count 358 MPV 8.9 Immature Gran % (Auto) 0.3 Neut % (Auto) 70.2 Lymph % (Auto) 19.9 [place] % (Auto) 7.4 Eos % (Auto) 1.5 Baso % (Auto) 0.7 Lymph # (Auto) 2.36 [place] # (Auto) 0.9 H Eos # (Auto) 0.2 Baso # (Auto) 0.1 Abs Immat Gran (auto) 0.04 H Absolute Neuts (auto) 8.3 H Absolute Nucleated RBC 0.0 Nucleated RBC % 0.0 Sodium 140 Potassium 3.8 Chloride 109 H Carbon Dioxide 27 Anion Gap 4 L BUN 8 Creatinine 0.60 L Estim Creat Clear Calc 79 Estimated GFR > 60 Glucose 104 Lactic Acid 0.7 Calcium 8.6 Total Bilirubin AST ALT Alkaline Phosphatase Total Protein Albumin Lipase Urine Color Urine Appearance Urine pH Ur Specific [place] Urine Protein Urine Glucose (UA) Urine Ketones Ur Blood (Man) Urine Nitrate Urine Bilirubin Urine Urobilinogen Leukocyte Esterase Rfl Urine RBC Urine WBC Ur Squamous Epith Cells Ur Transition Epith Cell Urine Bacteria Urine Mucus Imaging Radiologist's impression: Impressions Abdomen X-Ray 11/30/20 17:36 IMPRESSION: 1. Large volume of stool in colon. 2. Dilated small bowel in left upper quadrant, consistent with adynamic ileus versus bowel obstruction. Abdomen/Pelvis CT 11/30/20 21:12 IMPRESSION: 1. Large volume of stool in the colon. 2. Pelvic floor relaxation. 3. 12 mm mass in left adrenal gland. In the absence of known malignancy, this finding is likely an adenoma. OB - PN A/P Plan day: 1 Plan: discharge home and other (2 days) Time Spent With Patient Time: Total time spent is greater than 50% in coordination of care (as documented) at patient's floor/unit and/or counseling patient: Time with patient: less than 15 minutes Review of Systems Review of Systems: All systems reviewed & are unremarkable except as noted in HPI and below Exam Const: General: no acute distress Eyes: General: appearance normal, both eyes and all related structures Neck: Neck: supple and no JVD Thyroid: thyroid normal Resp: Effort & Inspection: normal respirator
--- NOTE | 2020-12-01 10:00 | PC.NURSE ---
pt refuses to have daily meds, is being discharged and will take them at home
== END 2020-12-01 10:17 | disposition home or self-care (01) ==
LOC: ANHED 22:00 → ANH2MED 22:34
PROVIDERS: Emergency Medicine; Emergency Medicine Emergency Medical Services; Admitting Provider Obstetrics & Gynecology; Emergency Provider General Practice; PCP Internal Medicine; Visit Provider Obstetrics & Gynecology
DX: K59.00 Constipation, unspecified (principal); R10.9 Unspecified abdominal pain; Z87.891 Personal history of nicotine dependence
CPT/HCPCS: 36415; 74018; 74177; 80048; 80053; 81001; 83605; 83690; 85025; 87077; 87086; 87088; 87186; 96365; 96367; 96375; 99285; A9270; G0378; J0131; J0696; J2060; J2405; J7030; J7120; Q9967

== ENCOUNTER 2020-12-20 10:58 | Outpatient (CLI) | payer MEDICARE, SELFPAY ==
--- NOTE | ~2020-12-20 | US_ITS ---
EXAMINATION: US renal BI DATE: 12/20/2020 11:29 INDICATION: Hydronephrosis with bilateral ureteral stents, one of which per patient has been removed. TECHNIQUE: Multiple ultrasound grayscale images of the kidneys were obtained. COMPARISON: None. FINDINGS: The right kidney measures 11.6 x 4.2 x 4.5 cm. The left kidney measures 10.3 x 5.2 x 3.6 cm. The kidn eys demonstrate normal echogenicity. There is no hydronephrosis in either kidney. No stones identifi ed. Linear echogenic stent is seen in the left trigonal region of the normal-appearing bladder. IMPRESSION: 1. Normal kidneys without hydronephrosis. 2. Portion of a likely left internal ureteral stent seen in the left trigonal region of the bladder. Reviewed, dictated and finalized at location A. IMPRESSION: 1. Normal kidneys without hydronephrosis. 2. Portion of a likely left internal ureteral stent seen in the left trigonal r egion of the bladder.
== END 2020-12-20 10:59 | disposition home or self-care (01) ==
PROVIDERS: PCP Internal Medicine; Visit Provider Urology
DX: N13.30 Unspecified hydronephrosis (principal)
CPT/HCPCS: 76775

== ENCOUNTER 2022-09-28 16:52 | Emergency (ER) | payer MEDICARE, SELFPAY ==
[2022-09-28 17:04] VITALS: BP 112/58; PULSE 84; RESP 16; TEMP 37.1; O2SAT 97
--- NOTE | 2022-09-28 17:22 | ED.GENADULT ---
HPI - General Adult General Chief complaint: Upper Respiratory Infection Stated complaint: Ear/Nose/ Throat Source: patient Mode of arrival: ambulatory Limitations: no limitations History of Present Illness HPI narrative: Patient presents for evaluation of sick symptoms. Symptom onset today. Symptoms include fever, sore throat, bilateral ear pressure, nonproductive cough, mild shortness of breath and frontal headache. No chills, nausea, vomiting, or diarrhea. No recent sick contacts. She does not smoke. She is not taking any medication to assist with her symptoms. No additional complaints or concerns. Related Data Home Medications Medication Instructions Recorded Confirmed Women's 50 Plus Multivitamin 1 tablet PO DAILY 11/09/20 09/28/22 cholecalciferol (vitamin D3) 25 50 mcg PO DAILY 11/09/20 09/28/22 mcg (1,000 unit) tablet (Vitamin D3) clonazepam 0.5 mg tablet 0.5 mg PO BID 11/09/20 09/28/22 clonazepam 2 mg tablet 2 mg PO HS 11/09/20 09/28/22 doxepin 10 mg capsule 10 mg PO HS 11/09/20 09/28/22 mirtazapine 30 mg tablet 30 mg PO HS 11/09/20 09/28/22 sertraline 100 mg tablet 100 mg PO HS 11/09/20 09/28/22 suvorexant 20 mg tablet (Belsomra) 20 mg PO HS 11/09/20 09/28/22 Allergies Allergy/AdvReac Type Severity Reaction Status Date / Time Sulfa (Sulfonamide Allergy Severe Rash Verified 11/30/20 19:50 Antibiotics) doxycycline Allergy Other Verified 09/28/22 17:13 levofloxacin AdvReac Unknown Other Verified 11/30/20 23:28 Zlfzrof-KZA-FlR Reductase AdvReac Unknown Other Verified 11/30/20 23:28 Inhibitor [Bdylibl-Vna-Zcr Reductase Inhibitor] Review of Systems Review of Systems: CONSTITUTIONAL: Reports fever. Denies chills, or sweats. EYES: Denies visual changes, redness, or discharge. ENT: Reports sore throat and bilateral ear pressure. Denies rhinorrhea and congestion CARDIOVASCULAR: Denies chest pain, palpitations, or edema. RESPIRATORY: Reports cough and mild SOB. GASTROINTESTINAL: Denies abdominal pain, nausea, vomiting, or diarrhea. GENITOURINARY: Denies dysuria or hematuria. SKIN: Denies rash or itching. MUSCULOSKELETAL: Denies back pain, joint pain, or myalgia. NEUROLOGIC:Reports frontal headache. Denies numbness, dizziness, or weakness. PSYCHIATRIC: Denies anxiety or depression. [facility] Past Medical History Medical History Anxiety Depression Hypercholesterolemia PTSD (post-traumatic stress disorder) Surgical History Surgical History History of anterior colporrhaphy Family History Family History Mother Family history of pancreatic cancer Father Family history of lung cancer Social History Social History Years smoked: 15 Smoking status: Former smoker Tobacco type: cigarettes Alcohol intake: never Substance use: never Substance use type: does not use Living arrangements: with family Gender identity (if verbalized by the patient): Female Spiritual care concerns: No Exam Narrative: GENERAL: Well-appearing, well-nourished, and in no acute distress. HEAD: Normocephalic, atraumatic. EYES: PERRLA and EOMI. ENT: Nares clear, no rhinorrhea or epistaxis. Mucous membranes moist. posterior pharyngeal erythema without exudate. Uvula is midline. Bilateral TMs pearly spain nonbulging NECK: Supple. No adenopathy or masses. No carotid bruits or JVD CHEST: Clear to auscultation. No respiratory distress. No wheezes rales or rhonchi HEART: Regular rate and rhythm. No murmur heard. Normal peripheral pulses. ABDOMEN: Soft, nontender, nondistended, normal active bowel sounds. EXTREMITIES: Normal range of motion. No edema. SKIN: Warm, dry, no rash. NEURO: No focal deficits. Alert and oriented x3. PSYCH: Normal mood and a
== END 2022-09-28 17:58 | disposition home or self-care (01) ==
PROVIDERS: Emergency Provider Nurse Practitioner
DX: J02.9 Acute pharyngitis, unspecified (principal); Z20.822 Contact with and (suspected) exposure to COVID-19; Z87.891 Personal history of nicotine dependence; E78.00 Pure hypercholesterolemia, unspecified; F41.9 Anxiety disorder, unspecified; F32.A Depression, unspecified
CPT/HCPCS: 87081; 87426; 87804; 87880; 99213; C9803; G0463

== ENCOUNTER 2023-03-19 12:24 | Emergency (ER) | payer MEDICARE, SELFPAY ==
--- NOTE | 2023-03-19 12:27 | ED.URI ---
HPI - URI/Sore Throat General Chief Complaint: Upper Respiratory Infection Stated Complaint: Sinus/Ears Irritation Time Seen by Provider: 03/19/23 12:27 Source: patient Mode of arrival: ambulatory Limitations: no limitations History of Present Illness HPI Narrative: Patient is a 63-year-old female who presents with 5 days of sinus pressure, sinus tenderness, bilateral ear pain that woke her up out of sleep, congestion. Patient denies any fever, chills, sore throat, cough, nausea, vomiting, diarrhea. Patient had heart attack 2 months ago and is on new cardiac medications. Patient has not taken any [id number] medications for symptoms due to not wanting to interfere with cardiac medication. Patient states she frequently gets sinus infections. Related Data Home Medications Medication Instructions Recorded Confirmed Women's 50 Plus Multivitamin 1 tablet PO DAILY 11/09/20 09/28/22 cholecalciferol (vitamin D3) 25 50 mcg PO DAILY 11/09/20 09/28/22 mcg (1,000 unit) tablet (Vitamin D3) clonazepam 0.5 mg tablet 0.5 mg PO BID 11/09/20 09/28/22 clonazepam 2 mg tablet 2 mg PO HS 11/09/20 09/28/22 doxepin 10 mg capsule 10 mg PO HS 11/09/20 09/28/22 mirtazapine 30 mg tablet 30 mg PO HS 11/09/20 09/28/22 sertraline 100 mg tablet 100 mg PO HS 11/09/20 09/28/22 suvorexant 20 mg tablet (Belsomra) 20 mg PO HS 11/09/20 09/28/22 aspirin 81 mg chewable tablet 81 mg PO DAILY 03/19/23 03/19/23 bempedoic acid 180 mg tablet 180 mg PO DAILY 03/19/23 03/19/23 (Nexletol) clopidogrel 75 mg tablet (Plavix) 75 mg PO DAILY 03/19/23 03/19/23 ezetimibe 10 mg tablet (Zetia) 10 mg PO DAILY 03/19/23 03/19/23 fluticasone 100 mcg-salmeterol 50 1 inh inhalation Q12H 03/19/23 03/19/23 mcg/dose blistr powdr for inhalation (Wixela Inhub) furosemide 40 mg tablet 40 mg PO DAILY 03/19/23 03/19/23 metoprolol tartrate 25 mg tablet 25 mg PO BID 03/19/23 03/19/23 Allergies Allergy/AdvReac Type Severity Reaction Status Date / Time Sulfa (Sulfonamide Allergy Severe Rash Verified 03/19/23 12:34 Antibiotics) doxycycline Allergy Other Verified 03/19/23 12:34 levofloxacin AdvReac Unknown Other Verified 03/19/23 12:34 Iuomits-EZF-SdV Reductase AdvReac Unknown Other Verified 03/19/23 12:34 Inhibitor [Liyobmi-Qjh-Pnm Reductase Inhibitor] Review of Systems Review of Systems: All systems reviewed & are unremarkable except as noted in HPI and below Constitutional: Constitutional: Denies body ache(s), Denies chills, Denies fatigue, Denies fever(s), Denies headache(s), Denies malaise and Denies weakness Eyes: Eyes: Denies blurry vision, Denies itchy eyes and Denies loss of vision ENT: Reports otalgia, Denies headache(s), Reports nasal congestion, Reports sinus pain, Reports sinus pressure and Denies sore throat Cardiovascular: Cardiovascular: Denies chest pain, Denies irregular heart rhythm and Denies dyspnea Respiratory: Respiratory: Denies cough and Denies dyspnea Gastrointestinal: Gastrointestinal: Denies abdominal pain, Denies diarrhea, Denies nausea and Denies vomiting Musculoskeletal: Musculoskeletal: Denies back pain, Denies myalgias and Denies arthralgias Integumentary/Breasts: Skin/Breast: Denies pruritus and Denies rash Neurologic: Denies headache(s), Denies loss of vision and Denies weakness Psychiatric: Psychiatric: Reports no additional psychiatric complaints Endocrine: Endocrine: Denies fatigue Allergic/Immunologic: Allergic/Immunologic: Denies itchy eyes PMFSH Past Medical History Medical History Anxiety Depression Hypercholesterolemia PTSD (post-traumatic stress disorder) Surgical History Surgical History History of anterior colporrhaphy Family History Family History Mother Family history of pancreatic cancer Father Family his
[2023-03-19 12:41] VITALS: BP 90/62; PULSE 67; RESP 16; TEMP 37.1; O2SAT 99
== END 2023-03-19 12:58 | disposition home or self-care (01) ==
PROVIDERS: Emergency Provider Nurse Practitioner Family
DX: J01.00 Acute maxillary sinusitis, unspecified (principal); Z87.891 Personal history of nicotine dependence; E78.00 Pure hypercholesterolemia, unspecified; F41.9 Anxiety disorder, unspecified; F32.A Depression, unspecified; F43.10 Post-traumatic stress disorder, unspecified
CPT/HCPCS: 99213; G0463

== ENCOUNTER → 2023-04-14 10:09 | Outpatient (CLI) | payer MEDICARE, SELFPAY ==
--- NOTE | ~2023-04-14 | MM_ITS ---
EXAMINATION: MM screening joyce BI w lidia HISTORY: Screening TECHNIQUE: Craniocaudal and mediolateral oblique 3-D tomosynthesis images were obtained and synthetic 2-D images were generated. CAD analysis was submitted and interpreted. COMPARISON: Comparison to multiple prior studies sequentially, with oldest reviewed study dated 10/22. BREAST PARENCHYMAL COMPOSITION: Breast composed of scattered areas of fibroglandular density FINDINGS: The left breast is stable. There is possible architectural distortion in the upper outer qu adrant of the right breast posteriorly. There is a small focal asymmetry on CC tomographic image 16 i n the area of architectural distortion. IMPRESSION: 1. New focal architectural distortion with nodular asymmetry, upper outer quadrant of the right breas t posteriorly. 2. Additional mammographic views and possible breast ultrasound are recommended. BI-RADS Category 0: Incomplete: Needs additional imaging evaluation. Reviewed, dictated and finalized at location A. IMPRESSION: 1. New focal architectural distortion with nodular asymmetry, upper outer quadr ant of the right breast posteriorly. 2. Additional mammographic views and possible breast ultrasound are recommended . BI-RADS Category 0: Incomplete: Needs additional imaging evaluation.
== END ==
PROVIDERS: PCP Obstetrics & Gynecology; Visit Provider Obstetrics & Gynecology
DX: Z12.31 Encounter for screening mammogram for malignant neoplasm of breast (principal); R92.8 Other abnormal and inconclusive findings on diagnostic imaging of breast
CPT/HCPCS: 77063; 77067

== ENCOUNTER → 2023-05-06 08:41 | Outpatient (CLI) | payer MEDICARE, SELFPAY ==
--- NOTE | ~2023-05-06 | MMUS_ITS ---
EXAMINATION: MM diagnostic joyce RT w lidia, US breast RT complete HISTORY: New focal architectural distortion with nodular asymmetry reported in upper outer quadrant o f right posterior breast on 04/14/2023 screening mammogram TECHNIQUE: Additional 3-D tomosynthesis images of the right breast were performed and synthetic 2-D i mages were generated. Rolled medial and lateral craniocaudal views. CAD analysis was submitted and in terpreted. High resolution complete right breast ultrasound examination including all 4 quadrants and subareolar area was performed. COMPARISON: 04/14/2023 bilateral screening mammogram FINDINGS: MAMMOGRAPHIC FINDINGS: No suspicious mass, architectural distortion, malignant calcification, skin thickening or retraction is detected. ULTRASOUND: Within the subcutaneous fat at 3:00 subareolar area there is a 1.8 x 3.6 x 3.7 mm sonolucency, likely a sebaceous cyst or other benign skin lesion. 3:00 3 cm from nipple: 1.2 x 3.4 mm parallel circumscribed sonolucency, without internal vascularity or posterior shadowing, likely benign, probably a small cyst 7:00 4 cm from nipple: Parallel circumscribed oval hypoechoic lesion without internal vascularity or posterior shadowing, benign in appearance 8:00 2 cm from nipple: Parallel circumscribed multilocular cyst measuring up to 2.5 x 3.8 x 4.7 mm 9:00 5 cm from nipple: 1.1 x 4.7 mm sonolucency consistent with small cyst 9:00 4 cm from nipple: 1.7 x 2.5 mm sonolucency consistent with small cyst No suspicious mass or shadowing is detected. IMPRESSION: 1. Benign findings 2. Routine annual mammographic screening is recommended BI-RADS Category 2: Benign finding(s). Reviewed, dictated and finalized at location A. IMPRESSION: 1. Benign findings 2. Routine annual mammographic screening is recommended BI-RADS Category 2: Benign finding(s).
== END ==
PROVIDERS: PCP Obstetrics & Gynecology; Visit Provider Obstetrics & Gynecology
DX: R92.8 Other abnormal and inconclusive findings on diagnostic imaging of breast (principal)
CPT/HCPCS: 76641; 77061; 77065; G0279

== ENCOUNTER 2024-07-07 03:25 | Emergency (ER) | payer MEDICARE, SELFPAY ==
[2024-07-07] VITALS (7 sets, daily range): BP systolic 100–146; BP diastolic 77–88; PULSE 61–71; RESP 12–30; TEMP 35.8; O2SAT 94–100
--- NOTE | ~2024-07-07 | XR_ITS ---
Portable chest x-ray Comparison: None Clinical History: Chest pain Findings: There is suggestion of mild interstitial prominence, nonspecific. No consolidation, pleura l effusion, or pneumothorax. Cardiomediastinal silhouette is stable. Bones and soft tissues are unre markable. Impression: Mild interstitial prominence is nonspecific. Correlate for COPD or chronic interstitial change or pos sibly minimal interstitial edema. Interstitial infection felt to be less likely based on the overall radiographic appearance. Reviewed, dictated and finalized at [facility]. Impression: Mild interstitial prominence is nonspecific. Correlate for COPD or chronic inte rstitial change or possibly minimal interstitial edema. Interstitial infection felt to be less likely based on the overall radiographic appearance.
--- NOTE | 2024-07-07 03:27 | ECG_ITS ---
Test Date: 2024-07-07 03:38:25 Measurements Intervals [place] Rate: 71 P: 87 IA: 140 QRS: 83 QRSD: 86 T: -16 QT: 398 QTc: 434 Interpretive Statements SINUS RHYTHM MINIMAL ST DEPRESSION [0.025+ mV ST DEPRESSION] No previous ECG available for comparison Electronically Signed On 07-07-2024 15:38:19 [employer] by Rod Gibson
[2024-07-07] MEDS: ONDANSETRON INJ 4 MG/2 ML VIAL IV PUSH (03:47)
[2024-07-07] MEDS: ASPIRIN 81 MG CHEWABLE TABLET 324 MG PO (03:48)
[2024-07-07 03:54] LABS: Basophils Percent Auto 0.3 % (0.2-1.2); Eosinophils Absolute Auto 0.1 K/mm3 (0-0.3); Eosinophils Percent Auto 0.6 % (0-4.4); Hematocrit 43.2 % (37.0-47.0); Hemoglobin 15.2 g/dL (12.0-15.0); Immature Granulocyte Absolute 0.06 K/mm3 (0.00-0.031); Immature Granulocyte Percent A 0.4 % (0-0.5); Lymphocytes Absolute Auto 1.08 K/mm3 (0.9-3.2); Lymphocytes Percent Auto 7.4 % (18.3-44.2); Mean Corpuscular HGB Conc 35.2 g/dl (32-36); Mean Corpuscular Hemoglobin 29.9 pg (26-34); Mean Platelet Volume 9.6 fl (7.4-10.4); Monocytes Absolute Auto 0.6 K/mm3 (0.1-0.6); Neutrophils Absolute Auto 12.7 K/mm3 (1.3-6.7); Neutrophils Percent Auto 87.3 % (45.5-73.1); Platelet Count Result 298 k/mm3 (150-375); Red Blood Count 5.08 M/mm3 (4.2-5.4); Red Cell Distribution Width 12.9 % (11.5-14.5); White Blood Count 14.6 K/mm3 (4.5-10.0)
--- NOTE | 2024-07-07 04:04 | ED.CHESTPAIN ---
HPI - Chest Pain General Chief Complaint: Chest Pain <Gaston Waterman MD - Last Filed: 07/07/24 07:18> Stated Complaint: i think i am having a heart attack <Gaston Waterman MD - Last Filed: 07/07/24 07:18> Time Seen by Provider: 07/07/24 03:32 <Gaston Waterman MD - Last Filed: 07/07/24 07:18> History of Present Illness HPI narrative: Patient is a 64-year-old female who presents to the emergency department this morning complaining of chest pain which started at 9:00 p.m.. Patient also complains of shortness of breath. Patient is hyperventilating and does appear to be having a panic attack. Admits to history of anxiety. Also admits to history of coronary artery disease and is concerned that she is having a heart attack. Patient continues to states that she can not breathe despite an O2 saturation of 100%. Patient also complains of bilateral hand numbness, nausea and vomiting. Denies any additional symptoms or concerns at this time. <Gaston Waterman MD - Last Filed: 07/07/24 07:18> Related Data Home Medications: Home Medications ?Medication ?Instructions ?Recorded ?Confirmed ?Last Taken ?Type Women's 50 Plus Multivitamin 1 tablet PO DAILY 11/09/20 09/28/22 11/15/20 History cholecalciferol (vitamin D3) 25 50 mcg PO DAILY 11/09/20 09/28/22 11/15/20 History mcg (1,000 unit) tablet (Vitamin D3) clonazepam 0.5 mg tablet 0.5 mg PO BID 11/09/20 09/28/22 11/22/20 08:00 History clonazepam 2 mg tablet 2 mg PO HS 11/09/20 09/28/22 11/21/20 History doxepin 10 mg capsule 10 mg PO HS 11/09/20 09/28/22 11/21/20 History mirtazapine 30 mg tablet 30 mg PO HS 11/09/20 09/28/22 11/21/20 History sertraline 100 mg tablet 100 mg PO HS 11/09/20 09/28/22 11/21/20 History suvorexant 20 mg tablet (Belsomra) 20 mg PO HS 11/09/20 09/28/22 11/21/20 History aspirin 81 mg chewable tablet 81 mg PO DAILY 03/19/23 03/19/23 Unknown History bempedoic acid 180 mg tablet 180 mg PO DAILY 03/19/23 03/19/23 Unknown History (Nexletol) clopidogrel 75 mg tablet (Plavix) 75 mg PO DAILY 03/19/23 03/19/23 Unknown History ezetimibe 10 mg tablet (Zetia) 10 mg PO DAILY 03/19/23 03/19/23 Unknown History fluticasone 100 mcg-salmeterol 50 1 inh inhalation Q12H 03/19/23 03/19/23 Unknown History mcg/dose blistr powdr for inhalation (Wixela Inhub) furosemide 40 mg tablet 40 mg PO DAILY 03/19/23 03/19/23 Unknown History metoprolol tartrate 25 mg tablet 25 mg PO BID 03/19/23 03/19/23 Unknown History <Gaston Waterman MD - Last Filed: 07/07/24 07:18> Allergies/Adverse Reactions: Allergies Allergy/AdvReac Type Severity Reaction Status Date / Time Sulfa (Sulfonamide Allergy Severe Rash Verified 07/07/24 03:41 Antibiotics) doxycycline Allergy Other Verified 07/07/24 03:41 levofloxacin AdvReac Unknown Other Verified 07/07/24 03:41 Gcobgrb-BCZ-IqP Reductase AdvReac Unknown Other Verified 07/07/24 03:41 Inhibitor (Igjclxn-Wff-Fji Reductase Inhibitor) <Gaston Waterman MD - Last Filed: 07/07/24 07:18> Review of Systems Review of Systems: All systems are reviewed and are negative unless stated otherwise in the HPI. <Gaston Waterman MD - Last Filed: 07/07/24 07:18> PMFSH Past Medical History Medical History: Medical History PTSD (post-traumatic stress disorder) Depression Anxiety Hypercholesterolemia <Gaston Waterman MD - Last Filed: 07/07/24 07:18> Surgical History Surgical History: Surgical History History of anterior colporrhaphy <Gaston Waterman MD - Last Filed: 07/07/24 07:18> Family History Family History: Family History Mother Family history of pancreatic cancer Father Family history of lung cancer <Gaston Waterman MD - Last Filed: 07/07/24 07:18> Social History Social History: Social History Years smoked: 15 Smoking status: Former smoker Tobacco type: cigarettes Alcohol intake: never Substance use: never Substance use type: does not use Living arrangements: with family Gender identity (if verbalized by the patient): Female Spiritual care concerns: No <Gaston aWterman MD - Last Filed: 07/07/24 07:18> Exam Narrative: General: Alert, awake, afebrile, anxious, hyperventilating. HEENT: PERRL, no rhinorrhea, no post nasal drip, oropharynx clear. Neck: Trachea midline, no JVD, no lymphadenopathy. Cardiovascular: Regular rate and rhythm, no murmurs, rubs or gallops, no peripheral edema. Respiratory: Clear to auscultation bilaterally, no tachypnea, no wheezing, no rhonchi, no rubs, no respiratory distress. Abdomen: Soft, nontender, nondistended, no rebound, no guarding, no peritoneal signs. Musculoskeletal: No joint swelling or deformity, normal muscle tone. Skin: No rashes or petechia, no signs of infection. Psychiatric: Alert and oriented, normal behavior and judgment for situation. Neurological: Alert and oriented to person, place, and time. Follows all commands. No focal deficits, speech is clear and fluent. <Gaston Waterman MD - Last Filed: 07/07/24 07:18> Course Reevaluation(s) Reevaluation #1: patient signed out to me pending re-evaluation after symptomatic management. She is now resting much more comfortably, appears less anxious, states that chest pain has resolved but she still feels nauseous and does not feel much better at all. I did offer her admission at this time, she states she would really rather go home. I do feel this seems reasonable given her negative cardiac workup, she had not had any further episodes of emesis here in the emergency room. I will give her prescriptions for nausea medication and GI medication, have let her know that if she changes her mind she can always return to the ER. Asked to follow-up with her doctor/medical investigator. at bedside. <Lashaun Blanc MD - Last Filed: 07/07/24 07:59> Vital Signs Vital signs: Vital Signs Temperature 96.5 F L 07/07/24 03:30 Pulse Rate 69 07/07/24 03:30 Respiratory Rate 30 H 07/07/24 03:30 Blood Pressure 146/85 H 07/07/24 03:30 Pulse Oximetry 100 07/07/24 03:30 Oxygen Delivery Room Air 07/07/24 03:30 Temperature 96.5 F L 07/07/24 03:30 Pulse Rate 71 07/07/24 07:20 Respiratory Rate 14 07/07/24 07:20 Blood Pressure 144/77 H 07/07/24 07:20 Pulse Oximetry 94 07/07/24 07:20 Oxygen Delivery Room Air 07/07/24 03:58 <Gaston Waterman MD - Last Filed: 07/07/24 07:18> Vital Signs Temperature 96.5 F L 07/07/24 03:30 Pulse Rate 69 07/07/24 03:30 Respiratory Rate 30 H 07/07/24 03:30 Blood Pressure 146/85 H 07/07/24 03:30 Pulse Oximetry 100 07/07/24 03:30 Oxygen Delivery Room Air 07/07/24 03:30 Temperature 96.5 F L 07/07/24 03:30 Pulse Rate 71 07/07/24 07:20 Respiratory Rate 14 07/07/24 07:20 Blood Pressure 144/77 H 07/07/24 07:20 Pulse Oximetry 94 07/07/24 07:20 Oxygen Delivery Room Air 07/07/24 03:58 <Lashaun Blanc MD - Last Filed: 07/07/24 07:59> MDM - Chest Pain MDM Narrative Medical decision making narrative: The patient was evaluated by myself in the emergency department. History is obtained from [source] who is an independent historian and physical exam was performed. External medical records were reviewed at this time. IV was established and pertinent tests were ordered. Patient was administered 4 mg of IV Zofran, 50 mg of IV Benadryl, 10 mg of IV Reglan for nausea. Patient continues to hyperventilate at this time she was administered 0.5 mg of IV Ativan with improvement of her symptoms. EKG was obtained which revealed sinus rhythm at a rate of 62 beats per minute. No ST changes, T wave inversions or evidence of acute ischemia. EKG was independently interpreted by me and is currently pending official cardiology read. Laboratory results obtained revealing a leukocytosis of 14.6 and magnesium of 1.5 otherwise unremarkable. Patient was administered 1 g of IV magnesium sulfate at this time, otherwise remainder of the blood work is unremarkable. Two sets of troponins were obtained and both noted to be negative. Portable chest x-ray was obtained at this time and independently interpreted by me revealing no acute cardiopulmonary process. <Gaston Waterman MD - Last Filed: 07/07/24 07:18> Lab Data Result diagrams: 07/07/24 03:47 07/07/24 03:47 <Gaston Waterman MD - Last Filed: 07/07/24 07:18> Labs: Lab Results 07/07/24 07/07/24 Range/Units 03:47 06:29 WBC 14.6 H (4.5-10.0) K/mm3 RBC 5.08 (4.2-5.4) M/mm3 Hgb 15.2 H D (12.0-15.0) g/dL Hct 43.2 (37.0-47.0) % MCV 85.0 (80-100) fl MCH 29.9 (26-34) pg MCHC 35.2 (32-36) g/dl RDW 12.9 (11.5-14.5) % Plt Count 298 (150-375) k/mm3 MPV 9.6 (7.4-10.4) fl Immature Gran % (Auto) 0.4 (0-0.5) % Neut % (Auto) 87.3 H (45.5-73.1) % Lymph % (Auto) 7.4 L (18.3-44.2) % Webster % (Auto) 4.0 (2.6-8.5) % Eos % (Auto) 0.6 (0-4.4) % Baso % (Auto) 0.3 (0.2-1.2) % Lymph # (Auto) 1.08 (0.9-3.2) K/mm3 Webster # (Auto) 0.6 (0.1-0.6) K/mm3 Eos # (Auto) 0.1 (0-0.3) K/mm3 Baso # (Auto) 0.0 (0.0-0.1) K/mm3 Abs Immat Gran (auto) 0.06 H (0.00-0.031) K/mm3 Absolute Neuts (auto) 12.7 H (1.3-6.7) K/mm3 Absolute Nucleated RBC 0.000 (0.0-0.012) K/mm3 Nucleated RBC % 0.0 (0.0-0.2) % PT 12.9 (11.1-14.7) Seconds INR 1.0 APTT 26.0 (22.3-36.8) Seconds Sodium 137 (137-145) mmol/L Potassium 4.1 (3.4-5.0) mmol/L Chloride 105 (98-107) mmol/L Carbon Dioxide 19 L (22-30) mmol/L Anion Gap 13 H (4-12) mmol/L BUN 23 H D (7-17) mg/dL Creatinine 0.70 (0.7-1.0) mg/dL Estim Creat Clear Calc 65 ml/min Estimated GFR > 60 (59 - ) Glucose 188 H (65-110) mg/dL Calcium 9.6 (8.4-10.2) mg/dL Magnesium 1.5 L (1.6-2.3) mg/dL Total Bilirubin 0.9 (0.2-1.3) mg/dL AST 37 H (14-36) U/L ALT 25 (6-35) U/L Alkaline Phosphatase 80 (38-126) U/L Troponin I < 0.012 < 0.012 (0.000-0.034) ng/mL Total Protein 7.0 (6.3-8.2) g/dL Albumin 4.4 (3.5-5.1) g/dL Lipase 80 (23-300) U/L <Gaston Waterman MD - Last Filed: 07/07/24 07:18> Lab Results 07/07/24 07/07/24 Range/Units 03:47 06:29 WBC 14.6 H (4.5-10.0) K/mm3 RBC 5.08 (4.2-5.4) M/mm3 Hgb 15.2 H D (12.0-15.0) g/dL Hct 43.2 (37.0-47.0) % MCV 85.0 (80-100) fl MCH 29.9 (26-34) pg MCHC 35.2 (32-36) g/dl RDW 12.9 (11.5-14.5) % Plt Count 298 (150-375) k/mm3 MPV 9.6 (7.4-10.4) fl Immature Gran % (Auto) 0.4 (0-0.5) % Neut % (Auto) 87.3 H (45.5-73.1) % Lymph % (Auto) 7.4 L (18.3-44.2) % Webster % (Auto) 4.0 (2.6-8.5) % Eos % (Auto) 0.6 (0-4.4) % Baso % (Auto) 0.3 (0.2-1.2) % Lymph # (Auto) 1.08 (0.9-3.2) K/mm3 Webster # (Auto) 0.6 (0.1-0.6) K/mm3 Eos # (Auto) 0.1 (0-0.3) K/mm3 Baso # (Auto) 0.0 (0.0-0.1) K/mm3 Abs Immat Gran (auto) 0.06 H (0.00-0.031) K/mm3 Absolute Neuts (auto) 12.7 H (1.3-6.7) K/mm3 Absolute Nucleated RBC 0.000 (0.0-0.012) K/mm3 Nucleated RBC % 0.0 (0.0-0.2) % PT 12.9 (11.1-14.7) Seconds INR 1.0 APTT 26.0 (22.3-36.8) Seconds Sodium 137 (137-145) mmol/L Potassium 4.1 (3.4-5.0) mmol/L Chloride 105 (98-107) mmol/L Carbon Dioxide 19 L (22-30) mmol/L Anion Gap 13 H (4-12) mmol/L BUN 23 H D (7-17) mg/dL Creatinine 0.70 (0.7-1.0) mg/dL Estim Creat Clear Calc 65 ml/min Estimated GFR > 60 (59 - ) Glucose 188 H (65-110) mg/dL Calcium 9.6 (8.4-10.2) mg/dL Magnesium 1.5 L (1.6-2.3) mg/dL Total Bilirubin 0.9 (0.2-1.3) mg/dL AST 37 H (14-36) U/L ALT 25 (6-35) U/L Alkaline Phosphatase 80 (38-126) U/L Troponin I < 0.012 < 0.012 (0.000-0.034) ng/mL Total Protein 7.0 (6.3-8.2) g/dL Albumin 4.4 (3.5-5.1) g/dL Lipase 80 (23-300) U/L <Lashaun Blanc MD - Last Filed: 07/07/24 07:59> Discharge Plan Discharge Clinical Impression: Hyperventilation, Nausea, Hiccup <Gaston Waterman MD - Last Filed: 07/07/24 07:18> Patient Disposition: Home, Self-Care <Gaston Waterman MD - Last Filed: 07/07/24 07:18> Condition: Stable <Gaston Waterman MD - Last Filed: 07/07/24 07:18> Instructions: Chest Pain (ED), Acute Nausea and Vomiting (ED) <Gaston Waterman MD - Last Filed: 07/07/24 07:18> Additional Instructions: Please follow up with your doctor; you can always return for any further issues, especially if you start experiencing chest pain or if you can't stop throwing up. <Gaston Waterman MD - Last Filed: 07/07/24 07:18> Patient Language: Somali <Gaston Waterman MD - Last Filed: 07/07/24 07:18> Prescriptions: New famotidine 20 mg tablet 20 mg PO DAILY Qty: 30 0RF alum-mag hydroxide-simeth [Maalox Advanced] 200-200-20 mg/5 mL suspension 10 ml PO QID PRN (Reason: dyspepsia) Qty: 300 0RF Rx Instructions: administer between meals and at bedtime ondansetron 4 mg tablet,disintegrating 4 mg PO Q8H PRN (Reason: nausea and vomiting) Qty: 10 0RF No Action furosemide 40 mg Tablet 40 mg PO DAILY clopidogrel [Plavix] 75 mg Tablet 75 mg PO DAILY aspirin 81 mg Tablet,Chewable 81 mg PO DAILY fluticasone propion-salmeterol [Wixela Inhub] 100-50 mcg/dose Blister With Device 1 inh INHALATION Q12H ezetimibe [Zetia] 10 mg Tablet 10 mg PO DAILY metoprolol tartrate 25 mg Tablet 25 mg PO BID Nexletol 180 mg Tablet 180 mg PO DAILY methylprednisolone [Medrol (Lui)] 4 mg tablets,dose pack See Rx Instructions .ROUTE .COMPLEX Qty: 21 0RF Rx Instructions: orally per package directions amoxicillin-pot clavulanate 875-125 mg tablet 1 tablet PO Q12H 10 Days Qty: 20 0RF clonazepam 0.5 mg Tablet 0.5 mg PO BID sertraline 100 mg Tablet 100 mg PO HS doxepin 10 mg Capsule 10 mg PO HS mirtazapine 30 mg Tablet 30 mg PO HS clonazepam 2 mg Tablet 2 mg PO HS cholecalciferol (vitamin D3) [Vitamin D3] 25 mcg (1,000 unit) Tablet 50 mcg PO DAILY Belsomra 20 mg Tablet 20 mg PO HS Women's 50 Plus Multivitamin 1 tablet PO DAILY <Gaston Waterman MD - Last Filed: 07/07/24 07:18> Follow-up/Referrals: Roldan,Jose Cheek MD [Primary Care Provider] - 2 Days <Gaston Waterman MD - Last Filed: 07/07/24 07:18>
[2024-07-07 04:11] LABS: Alanine Aminotransferase 25 U/L (6-35); Albumin Level 4.4 g/dL (3.5-5.1); Alkaline Phosphatase 80 U/L (38-126); Anion Gap 13 mmol/L (4-12); Aspartate Amino Transferase 37 U/L (14-36); Bilirubin,Total 0.9 mg/dL (0.2-1.3); Blood Urea Nitrogen 23 mg/dL (7-17); Calcium 9.6 mg/dL (8.4-10.2); Carbon Dioxide 19 mmol/L (22-30); Chloride 105 mmol/L (98-107); Estimated CRCL calculation 65 ml/min; Estimated Glomerular Filt Rate > 60; Glucose 188 mg/dL (65-110); Lipase 80 U/L (23-300); Magnesium 1.5 mg/dL (1.6-2.3); Potassium 4.1 mmol/L (3.4-5.0); Prothrombin Time 12.9 Seconds (11.1-14.7); Sodium 137 mmol/L (137-145)
[2024-07-07] MEDS: METOCLOPRAMIDE HCL INJ 10 MG/2 ML VIAL IV PUSH (04:14)
[2024-07-07] MEDS: diphenhydrAMINE HCl INJ 50 MG/ML VIAL IV PUSH (04:14)
[2024-07-07 04:20] LABS: Troponin I < 0.012 ng/mL (0.000-0.034)
[2024-07-07] MEDS: LORazepam INJ (*CRX) 2 MG/ML VIAL 0.5 MG IV PUSH (04:39)
[2024-07-07] MEDS: MAGNESIUM SULF 1 GM/D5W 100 ML 1 GM/100 ML BAG IVPB (04:39)
[2024-07-07] MEDS: PROCHLORPERAZINE EDISYLATE 10 MG/2 ML VIAL IV PUSH (06:15)
--- NOTE | 2024-07-07 06:40 | ECG_ITS ---
Test Date: 2024-07-07 06:42:55 Measurements Intervals [place] Rate: 62 P: 54 NC: 180 QRS: 42 QRSD: 96 T: 2 QT: 436 QTc: 445 Interpretive Statements SINUS RHYTHM WITH MARKED SINUS ARRHYTHMIA NONSPECIFIC T-WAVE ABNORMALITY Compared to ECG 07/07/2024 03:38:25 NO SIGNIFICANT CHANGES SEEN Electronically Signed On 07-07-2024 15:40:14 ORTHOPEDIC TECHNICIAN by Rod Gibson
[2024-07-07] MEDS: HALOPERIDOL LACTATE 5 MG/ML VIAL IV PUSH (06:50)
[2024-07-07 06:58] LABS: Troponin I < 0.012 ng/mL (0.000-0.034)
[2024-07-07] MEDS: PANTOPRAZOLE SODIUM IV 40 MG VIAL IV PUSH (07:41)
[2024-07-07] MEDS: FAMOTIDINE 20 MG/2 ML VIAL IV PUSH (07:41)
[2024-07-07] MEDS: MAG HYDROX/AL HYDROX/SIMETH 30 ML UDC PO (07:41)
== END 2024-07-07 08:05 | disposition home or self-care (01) ==
PROVIDERS: Emergency Medicine; Emergency Provider Emergency Medicine; PCP Internal Medicine
DX: R06.4 Hyperventilation (principal); R11.0 Nausea; R06.6 Hiccough; I25.10 Atherosclerotic heart disease of native coronary artery without angina pectoris; F41.8 Other specified anxiety disorders; E78.00 Pure hypercholesterolemia, unspecified; Z87.891 Personal history of nicotine dependence
CPT/HCPCS: 36415; 71045; 80053; 83690; 83735; 84484; 85025; 85610; 85730; 93005; 96365; 96375; 99284; A9270; J0780; J1200; J1630; J2060; J2405; J2470; J2765; J3475